=== PATIENT | male | born 1965 | race African-American/Black ===

== ENCOUNTER 2016-11-21 21:05 | Inpatient (IN) | payer MEDICARE, MEDICAID ==
[~2016-11-21] VITALS: Ht 180.3 cm; Wt 78.2 kg
[~2016-11-21 21:05] MED LIST: ALBU8HFA IH; AMLO2.5T PO; DIVA500T69 PO; QUET200T29 PO
[2016-11-21 22:27] LABS: EOSINOPHILS % (AUTO) 3.8 % (1.0-6.0); HEMATOCRIT 40.5 % (41-53); HEMOGLOBIN 13.1 g/dL (13.5-17.5); LYMPHOCYTES # (AUTO) 2.1 K/uL (1.0-4.8); LYMPHOCYTES % (AUTO) 28.2 % (22.0-44.0); MEAN CORPUSCULAR HEMOGLOBIN 30.1 pg (26.0-34.0); MEAN CORPUSCULAR HGB CONC 32.5 G/dL (31.0-37.0); MEAN CORPUSCULAR VOLUME 93 fL (80-100); MONOCYTES # (AUTO) 0.4 K/uL (0.1-1.0); MONOCYTES % (AUTO) 5.7 % (2.0-9.0); NEUTROPHILS # (AUTO) 4.6 K/uL (1.8-7.7); NEUTROPHILS % (AUTO) 61.3 % (40.0-70.0); PLATELET COUNT (AUTO) 236 K/uL (150-450); RED BLOOD CELL COUNT(AUTO) 4.37 MIL/uL (4.50-5.90); RED CELL DISTRIBUTION WIDTH 15.7 % (11.5-14.5); WHITE BLOOD COUNT (AUTO) 7.5 K/uL (4.5-11.0)
[2016-11-21 22:38] LABS: ANION GAP 12 mmol/L (8-16); CARBON DIOXIDE 24 mmol/L (22-29); CHLORIDE 108 mmol/L (98-107); CREATININE 1.23 mg/dL (0.60-1.30); GLOMERULAR FILTR. RATE CALC > 60 mL/min (>60); POTASSIUM 4.2 mmol/L (3.5-5.1); SODIUM SERUM 144 mmol/L (136-145); UREA NITROGEN, BLOOD 17 mg/dL (7-18)
[2016-11-21 22:45] LABS: ALANINE AMINOTRANSFERASE 15 U/L (12-78); ALBUMIN 3.3 g/dL (3.4-5.0); ASPARTATE AMINOTRANSFERASE 8 U/L (15-37); BILIRUBIN,TOTAL 0.1 mg/dL (0.1-1.0); TOTAL PROTEIN, SERUM 6.9 g/dL (6.4-8.2)
[2016-11-21] MEDS ORDERED: LORazepam 2 MG/ML VIAL IM ONE (23:00)
[2016-11-21] MEDS ORDERED: HALOPERIDOL LACTATE 5 MG/ML VIAL IM ONE (23:00)
[2016-11-21] MEDS ORDERED: DiphenhydrAMINE HCL 50 MG/ML VIAL IM ONE (23:00)
[2016-11-21] MEDS ORDERED: LORazepam 2 MG TABLET PO PRN (23:15)
[2016-11-21] MEDS ORDERED: ZOLPIDEM TARTRATE 10 MG TABLET PO PRN (23:15)
[2016-11-21] MEDS ORDERED: HALOPERIDOL 5 MG TABLET PO PRN (23:15)
[2016-11-22 00:45] VITALS: BP 141/85
[2016-11-22] MEDS ORDERED: PNEUMOCOCCAL VACCINE POLYVALENT 0.5 ML VIAL [PPSV23] IM ONE (03:00)
[2016-11-22] MEDS ORDERED: ALBUTEROL SULFATE HFA 90 MCG/PUFF 8 GM INHALER IH PRN (08:30)
[2016-11-22] MEDS ORDERED: CloNIDine HCL 0.1 MG TABLET PO PRN (08:30)
[2016-11-22] MEDS ORDERED: MAG HYDROX/AL HYDROX/SIMETH ES 30 ML SUSPENSION UDCUP PO PRN (08:30)
[2016-11-22] MEDS ORDERED: IBUPROFEN 600 MG TABLET PO PRN (08:30)
[2016-11-22] MEDS ORDERED: BENZOCAINE/MENTHOL LOZENGE MM PRN (08:30)
[2016-11-22] MEDS ORDERED: BACITRACIN 28.4 GM OINTMENT TP PRN (08:30)
[2016-11-22] MEDS ORDERED: LOPERAMIDE HCL 2 MG CAPSULE PO PRN (08:30)
[2016-11-22] MEDS ORDERED: ACETAMINOPHEN 325 MG TABLET PO PRN (08:30)
[2016-11-22] MEDS ORDERED: PETROLATUM,WHITE 71 GM JELLY TP PRN (08:30)
[2016-11-22] MEDS ORDERED: ONDANSETRON HCL 4 MG TABLET PO PRN (08:30)
[2016-11-22] MEDS ORDERED: MAGNESIUM HYDROXIDE SUSPENSION 30 ML UDCUP PO PRN (08:30)
[2016-11-22] MEDS ORDERED: BENZOCAINE/MENTHOL LOZENGE [8 LOZENGES/PACKET] MM PRN (08:32)
[2016-11-22] MEDS: AmLODIPine BESYLATE 2.5 MG TABLET PO SCH (09:42)
[2016-11-22 12:16] VITALS: BP 144/78
[2016-11-22] MEDS: QUEtiapine FUMARATE 200 MG TABLET PO SCH (21:04)
[2016-11-22] MEDS: DIVALPROEX SODIUM 500 MG ER TABLET PO SCH (21:04)
[2016-11-23 08:31] VITALS: BP 141/86
[2016-11-23] MEDS: AmLODIPine BESYLATE 2.5 MG TABLET PO SCH (09:18)
[2016-11-23] MEDS ORDERED: GuaiFENesin/D-METHORPHAN [SUGAR-FREE] 200-20MG/10 ML SYRUP UDCUP PO PRN (10:15)
[2016-11-23] MEDS ORDERED: QUEtiapine FUMARATE 100 MG TABLET PO PRN (10:15)
[2016-11-23] MEDS ORDERED: HydrOXYzine PAMOATE 50 MG CAPSULE PO PRN (10:15)
[2016-11-23] MEDS ORDERED: LORazepam 2 MG TABLET PO PRN (16:15)
[2016-11-23] MEDS: THIAMINE HCL 100 MG TABLET PO SCH (16:18)
[2016-11-23 16:46] VITALS: BP 145/104
[2016-11-23 17:00] VITALS: BP 142/98
[2016-11-23] MEDS: DIVALPROEX SODIUM 500 MG ER TABLET PO SCH (20:39)
[2016-11-23] MEDS: QUEtiapine FUMARATE 200 MG TABLET PO SCH (20:40)
[2016-11-24] MEDS ORDERED: LORazepam 2 MG TABLET PO PRN (07:00)
[2016-11-24] MEDS: FERROUS SULFATE 325 MG EC TABLET PO SCH ×2 (07:02→16:25)
[2016-11-24] MEDS: FOLIC ACID 1 MG TABLET PO SCH (09:00)
[2016-11-24] MEDS: LORazepam 2 MG TABLET PO SCH ×4 (09:00→20:08)
[2016-11-24] MEDS: MULTIVITAMINS WITH MINERALS, THERAPEUTIC TABLET PO SCH (09:00)
[2016-11-24] MEDS: THIAMINE HCL 100 MG TABLET PO SCH ×2 (09:00→16:25)
[2016-11-24] MEDS: AmLODIPine BESYLATE 2.5 MG TABLET PO SCH (09:00)
[2016-11-24] MEDS: DIVALPROEX SODIUM 500 MG ER TABLET PO SCH (20:08)
[2016-11-24] MEDS: QUEtiapine FUMARATE 200 MG TABLET PO SCH (20:08)
[2016-11-25] MEDS: FERROUS SULFATE 325 MG EC TABLET PO SCH ×2 (07:04→17:05)
[2016-11-25] MEDS: LORazepam 2 MG TABLET PO SCH ×4 (09:00→20:40)
[2016-11-25] MEDS: THIAMINE HCL 100 MG TABLET PO SCH ×2 (09:29→17:00)
[2016-11-25] MEDS: MULTIVITAMINS WITH MINERALS, THERAPEUTIC TABLET PO SCH (09:29)
[2016-11-25] MEDS: AmLODIPine BESYLATE 2.5 MG TABLET PO SCH (09:29)
[2016-11-25] MEDS: FOLIC ACID 1 MG TABLET PO SCH (09:29)
[2016-11-25 10:20] VITALS: BP 126/89
[2016-11-25 10:22] VITALS: BP 126/89
[2016-11-25] MEDS ORDERED: QUEtiapine FUMARATE 25 MG TABLET PO ONE (12:15)
[2016-11-25 16:20] VITALS: BP 129/75
[2016-11-25 16:23] VITALS: BP 129/75
[2016-11-25] MEDS: DIVALPROEX SODIUM 500 MG ER TABLET PO SCH (20:40)
[2016-11-25] MEDS: QUEtiapine FUMARATE 200 MG TABLET PO SCH (20:40)
[2016-11-26] MEDS: FERROUS SULFATE 325 MG EC TABLET PO SCH ×2 (06:59→16:44)
[2016-11-26] MEDS ORDERED: LORazepam 1 MG TABLET PO PRN (07:00)
[2016-11-26] MEDS: MULTIVITAMINS WITH MINERALS, THERAPEUTIC TABLET PO SCH (08:39)
[2016-11-26] MEDS: LORazepam 1 MG TABLET PO SCH ×4 (08:39→21:14)
[2016-11-26] MEDS: AmLODIPine BESYLATE 2.5 MG TABLET PO SCH (08:39)
[2016-11-26] MEDS: THIAMINE HCL 100 MG TABLET PO SCH ×2 (08:39→16:03)
[2016-11-26] MEDS: FOLIC ACID 1 MG TABLET PO SCH (08:39)
[2016-11-26 08:54] VITALS: BP 131/92
[2016-11-26] MEDS ORDERED: NALT50 PO (12:51)
[2016-11-26] MEDS ORDERED: QUET200T29 PO (12:51)
[2016-11-26] MEDS ORDERED: DIVA500T52 PO (12:51)
[2016-11-26 16:21] VITALS: BP 136/98
[2016-11-26] MEDS: DIVALPROEX SODIUM 500 MG ER TABLET PO SCH (21:14)
[2016-11-26] MEDS: QUEtiapine FUMARATE 200 MG TABLET PO SCH (21:15)
[2016-11-27] MEDS: FERROUS SULFATE 325 MG EC TABLET PO SCH (06:51)
[2016-11-27] MEDS ORDERED: LORazepam 1 MG TABLET PO PRN (07:00)
[2016-11-27 08:21] VITALS: BP 147/109
[2016-11-27 08:30] VITALS: BP 154/111
[2016-11-27] MEDS: AmLODIPine BESYLATE 2.5 MG TABLET PO SCH (08:35)
[2016-11-27] MEDS: MULTIVITAMINS WITH MINERALS, THERAPEUTIC TABLET PO SCH (08:35)
[2016-11-27] MEDS: THIAMINE HCL 100 MG TABLET PO SCH (08:36)
[2016-11-27] MEDS: FOLIC ACID 1 MG TABLET PO SCH (08:36)
[2016-11-27] MEDS ORDERED: NALTREXONE HCL 50 MG TABLET PO SCH (09:00)
[2016-11-27] MEDS ORDERED: AMLO-511 PO (10:06)
[2016-11-27] MEDS ORDERED: FERR-89 PO (10:06)
[2016-11-27 11:35] VITALS: BP 129/92
== END 2016-11-27 11:50 | disposition home or self-care (01) | DRG 885 ==
LOC: EMS 21:08 → 3EC 23:43
PROVIDERS: ATTEND Psychiatry & Neurology Psychiatry
PROC: GZHZZZZ Group Psychotherapy (ICD-10-PCS; principal; 2016-11-21)
PROC: GZ51ZZZ Individual Psychotherapy, Behavioral (ICD-10-PCS; 2016-11-21)
DX: F25.0 Schizoaffective disorder, bipolar type (principal); R45.851 Suicidal ideations; R45.850 Homicidal ideations; J44.9 Chronic obstructive pulmonary disease, unspecified; G89.29 Other chronic pain; D64.9 Anemia, unspecified; I12.9 Hypertensive chronic kidney disease with stage 1 through stage 4 chronic kidney disease, or unspecified chronic kidney disease; N18.9 Chronic kidney disease, unspecified; E78.5 Hyperlipidemia, unspecified; Z53.29 Procedure and treatment not carried out because of patient's decision for other reasons; M19.90 Unspecified osteoarthritis, unspecified site; F19.10 Other psychoactive substance abuse, uncomplicated; F12.90 Cannabis use, unspecified, uncomplicated; F17.210 Nicotine dependence, cigarettes, uncomplicated; G47.00 Insomnia, unspecified; F10.129 Alcohol abuse with intoxication, unspecified; F60.9 Personality disorder, unspecified; Y90.3 Blood alcohol level of 60-79 mg/100 ml; Z91.19 Patient's noncompliance with other medical treatment and regimen; Z71.6 Tobacco abuse counseling; Z59.0 Homelessness; Z71.51 Drug abuse counseling and surveillance of drug abuser; Z28.21 Immunization not carried out because of patient refusal; Z79.899 Other long term (current) drug therapy
CPT/HCPCS: 96372; 99285; G0480; J1200; J1630; J2060

== ENCOUNTER 2016-12-28 17:50 | Inpatient (IN) | payer MEDICARE, MEDICAID ==
[~2016-12-28] VITALS: Ht 182.9 cm; Wt 78.9 kg
[~2016-12-28 17:50] MED LIST changes: -ALBU8HFA IH; +AMLO-511 PO; -AMLO2.5T PO; +DIVA500T52 PO; -DIVA500T69 PO; +FERR-89 PO; +NALT50 PO
[2016-12-28 20:10] LABS: BASOPHILS # (AUTO) 0.02 K/uL (0.00-0.20); BASOPHILS % (AUTO) 0.3 % (0.0-2.0); EOSINOPHILS # (AUTO) 0.45 K/uL (0.00-0.70); EOSINOPHILS % (AUTO) 6.76 % (1.0-6.0); HEMATOCRIT 40.5 % (41-53); HEMOGLOBIN 13.4 g/dL (13.5-17.5); LYMPHOCYTES # (AUTO) 2.1 K/uL (1.0-4.8); LYMPHOCYTES % (AUTO) 31.6 % (22.0-44.0); MEAN CORPUSCULAR HGB CONC 33.1 G/dL (31.0-37.0); MEAN CORPUSCULAR VOLUME 94 fL (80-100); MONOCYTES # (AUTO) 0.6 K/uL (0.1-1.0); MONOCYTES % (AUTO) 8.2 % (2.0-9.0); NEUTROPHILS # (AUTO) 3.5 K/uL (1.8-7.7); NEUTROPHILS % (AUTO) 53.1 % (40.0-70.0); PLATELET COUNT (AUTO) 218 K/uL (150-450); RED BLOOD CELL COUNT(AUTO) 4.31 MIL/uL (4.50-5.90); RED CELL DISTRIBUTION WIDTH 15.1 % (11.5-14.5); WHITE BLOOD COUNT (AUTO) 6.7 K/uL (4.5-11.0)
[2016-12-28 20:22] LABS: ANION GAP 7 mmol/L (8-16); CALCIUM, TOTAL 8.2 mg/dL (8.8-10.5); CARBON DIOXIDE 28 mmol/L (22-29); CHLORIDE 105 mmol/L (98-107); CREATININE 1.36 mg/dL (0.60-1.30); GLOMERULAR FILTR. RATE CALC > 60 mL/min (>60); POTASSIUM 3.7 mmol/L (3.5-5.1); SODIUM SERUM 140 mmol/L (136-145); UREA NITROGEN, BLOOD 15 mg/dL (7-18)
[2016-12-28 20:28] LABS: ALANINE AMINOTRANSFERASE 16 U/L (12-78); ALBUMIN 3.3 g/dL (3.4-5.0); ASPARTATE AMINOTRANSFERASE 7 U/L (15-37); BILIRUBIN,TOTAL 0.1 mg/dL (0.1-1.0); CHOL/HDL RATIO 3.5 (4.2-7.3); TOTAL PROTEIN, SERUM 6.6 g/dL (6.4-8.2)
[2016-12-28 20:40] LABS: VALPROIC ACID < 3 mcg/mL (50-100)
[2016-12-29] MEDS ORDERED: PNEUMOCOCCAL VACCINE POLYVALENT 0.5 ML VIAL [PPSV23] IM ONE (01:45)
[2016-12-29 05:59] VITALS: BP 112/77
[2016-12-29] MEDS ORDERED: PETROLATUM,WHITE 71 GM JELLY TP PRN (08:30)
[2016-12-29] MEDS ORDERED: CloNIDine HCL 0.1 MG TABLET PO PRN (08:30)
[2016-12-29] MEDS ORDERED: BENZOCAINE/MENTHOL LOZENGE MM PRN (08:30)
[2016-12-29] MEDS ORDERED: MAGNESIUM HYDROXIDE SUSPENSION 30 ML UDCUP PO PRN (08:30)
[2016-12-29] MEDS ORDERED: ONDANSETRON HCL 4 MG TABLET PO PRN (08:30)
[2016-12-29] MEDS ORDERED: ACETAMINOPHEN 325 MG TABLET PO PRN (08:30)
[2016-12-29] MEDS ORDERED: LOPERAMIDE HCL 2 MG CAPSULE PO PRN (08:30)
[2016-12-29] MEDS ORDERED: BACITRACIN 28.4 GM OINTMENT TP PRN (08:30)
[2016-12-29] MEDS ORDERED: ALBUTEROL SULFATE HFA 90 MCG/PUFF 8 GM INHALER IH PRN (08:30)
[2016-12-29] MEDS ORDERED: MAG HYDROX/AL HYDROX/SIMETH ES 30 ML SUSPENSION UDCUP PO PRN (08:30)
[2016-12-29] MEDS: FISH OIL/OMEGA-3 FATTY ACIDS 500 MG CAPSULE PO SCH (09:05)
[2016-12-29 16:23] VITALS: BP 105/86
[2016-12-29] MEDS: OLANZapine 10 MG TABLET PO SCH (20:35)
[2016-12-30] MEDS: FISH OIL/OMEGA-3 FATTY ACIDS 500 MG CAPSULE PO SCH (08:30)
[2016-12-30] MEDS: PARoxetine HCL 20 MG TABLET PO SCH (08:30)
[2016-12-30] MEDS: IBUPROFEN 600 MG TABLET PO PRN (08:49)
[2016-12-30] MEDS: OLANZapine 10 MG TABLET PO SCH (20:39)
[2016-12-31] MEDS: FISH OIL/OMEGA-3 FATTY ACIDS 500 MG CAPSULE PO SCH (08:34)
[2016-12-31] MEDS: PARoxetine HCL 20 MG TABLET PO SCH (08:38)
[2016-12-31] MEDS: OLANZapine 10 MG TABLET PO SCH (20:39)
[2017-01-01 06:30] VITALS: BP 126/84
[2017-01-01] MEDS: FISH OIL/OMEGA-3 FATTY ACIDS 500 MG CAPSULE PO SCH (08:30)
[2017-01-01] MEDS: PARoxetine HCL 20 MG TABLET PO SCH (08:30)
[2017-01-01] MEDS: OLANZapine 10 MG TABLET PO SCH (20:45)
[2017-01-02] MEDS: FISH OIL/OMEGA-3 FATTY ACIDS 500 MG CAPSULE PO SCH (08:02)
[2017-01-02] MEDS: PARoxetine HCL 20 MG TABLET PO SCH (08:02)
[2017-01-02] MEDS: OLANZapine 10 MG TABLET PO SCH (20:17)
[2017-01-02] MEDS: ZOLPIDEM TARTRATE 10 MG TABLET PO PRN (20:31)
[2017-01-03] MEDS: PARoxetine HCL 20 MG TABLET PO SCH (08:47)
[2017-01-03] MEDS: FISH OIL/OMEGA-3 FATTY ACIDS 500 MG CAPSULE PO SCH (08:47)
[2017-01-03] MEDS: OXYMETAZOLINE HCL 0.05% 15 ML NASAL SPRAY NASAL SCH ×2 (08:47→16:23)
[2017-01-03] MEDS: OLANZapine 10 MG TABLET PO SCH (20:38)
[2017-01-04] MEDS: FISH OIL/OMEGA-3 FATTY ACIDS 500 MG CAPSULE PO SCH (08:16)
[2017-01-04] MEDS: OXYMETAZOLINE HCL 0.05% 15 ML NASAL SPRAY NASAL SCH ×2 (08:16→17:12)
[2017-01-04] MEDS: PARoxetine HCL 20 MG TABLET PO SCH (08:16)
[2017-01-04] MEDS: LORazepam 2 MG TABLET PO PRN (11:30)
[2017-01-04] MEDS: OLANZapine 10 MG TABLET PO SCH (21:00)
[2017-01-05] MEDS: PARoxetine HCL 20 MG TABLET PO SCH (08:34)
[2017-01-05] MEDS: FISH OIL/OMEGA-3 FATTY ACIDS 500 MG CAPSULE PO SCH (08:34)
[2017-01-05] MEDS: OXYMETAZOLINE HCL 0.05% 15 ML NASAL SPRAY NASAL SCH ×2 (08:35→17:00)
[2017-01-05] MEDS ORDERED: PNEUMOCOCCAL VACCINE POLYVALENT 0.5 ML VIAL [PPSV23] IM ONE (17:00)
[2017-01-05] MEDS: IBUPROFEN 600 MG TABLET PO PRN (20:26)
[2017-01-05] MEDS: OLANZapine 10 MG TABLET PO SCH (20:39)
[2017-01-06 08:17] VITALS: BP 102/72
[2017-01-06] MEDS: OXYMETAZOLINE HCL 0.05% 15 ML NASAL SPRAY NASAL SCH ×2 (09:00→17:00)
[2017-01-06] MEDS: PARoxetine HCL 20 MG TABLET PO SCH (09:35)
[2017-01-06] MEDS: FISH OIL/OMEGA-3 FATTY ACIDS 500 MG CAPSULE PO SCH (09:35)
[2017-01-06] MEDS: LORazepam 2 MG TABLET PO PRN (09:41)
[2017-01-06] MEDS: OLANZapine 10 MG TABLET PO SCH (21:00)
[2017-01-07] MEDS: OXYMETAZOLINE HCL 0.05% 15 ML NASAL SPRAY NASAL SCH ×2 (09:00→16:52)
[2017-01-07] MEDS: PARoxetine HCL 20 MG TABLET PO SCH (09:33)
[2017-01-07] MEDS: FISH OIL/OMEGA-3 FATTY ACIDS 500 MG CAPSULE PO SCH (09:33)
[2017-01-07] MEDS: IBUPROFEN 600 MG TABLET PO PRN (20:51)
[2017-01-07] MEDS: OLANZapine 10 MG TABLET PO SCH (20:52)
[2017-01-08] MEDS: FISH OIL/OMEGA-3 FATTY ACIDS 500 MG CAPSULE PO SCH ×2 (08:52→09:00)
[2017-01-08] MEDS: PARoxetine HCL 20 MG TABLET PO SCH ×2 (08:52→09:00)
[2017-01-08] MEDS: OXYMETAZOLINE HCL 0.05% 15 ML NASAL SPRAY NASAL SCH ×2 (09:00→17:12)
[2017-01-08] MEDS ORDERED: OLAN10TA3 PO (09:01)
[2017-01-08] MEDS ORDERED: PARO20TA24 PO (09:01)
[2017-01-08] MEDS ORDERED: OMEG-12 PO (09:01)
[2017-01-08] MEDS ORDERED: OXYM15MI5 NS (09:09)
[2017-01-08] MEDS: IBUPROFEN 600 MG TABLET PO PRN (15:24)
[2017-01-08] MEDS: LORazepam 2 MG TABLET PO PRN (15:51)
[2017-01-08] MEDS: HALOPERIDOL 5 MG TABLET PO PRN (15:51)
[2017-01-08] MEDS: RisperiDONE 0.5 MG TABLET PO SCH (17:12)
[2017-01-09] MEDS: FISH OIL/OMEGA-3 FATTY ACIDS 500 MG CAPSULE PO SCH (08:53)
[2017-01-09] MEDS: RisperiDONE 0.5 MG TABLET PO SCH ×2 (08:54→17:40)
[2017-01-09] MEDS: PARoxetine HCL 20 MG TABLET PO SCH (08:54)
[2017-01-09] MEDS: LORazepam 2 MG TABLET PO PRN (08:59)
[2017-01-09] MEDS: OXYMETAZOLINE HCL 0.05% 15 ML NASAL SPRAY NASAL SCH ×2 (09:00→17:40)
[2017-01-09 16:16] VITALS: BP 108/77
[2017-01-09 20:59] VITALS: BP 118/73
[2017-01-09] MEDS: ZOLPIDEM TARTRATE 10 MG TABLET PO PRN (21:04)
[2017-01-09] MEDS: IBUPROFEN 600 MG TABLET PO PRN (21:05)
[2017-01-10 08:02] VITALS: BP 123/74
[2017-01-10] MEDS: FISH OIL/OMEGA-3 FATTY ACIDS 500 MG CAPSULE PO SCH (09:12)
[2017-01-10] MEDS: RisperiDONE 0.5 MG TABLET PO SCH ×2 (09:12→17:29)
[2017-01-10] MEDS: OXYMETAZOLINE HCL 0.05% 15 ML NASAL SPRAY NASAL SCH ×2 (09:12→17:29)
[2017-01-10] MEDS: PARoxetine HCL 20 MG TABLET PO SCH (09:12)
[2017-01-10] MEDS: LORazepam 2 MG TABLET PO PRN (09:17)
[2017-01-10 16:02] VITALS: BP 116/71
[2017-01-11] MEDS: PARoxetine HCL 20 MG TABLET PO SCH (09:29)
[2017-01-11] MEDS: OXYMETAZOLINE HCL 0.05% 15 ML NASAL SPRAY NASAL SCH ×2 (09:29→16:32)
[2017-01-11] MEDS: FISH OIL/OMEGA-3 FATTY ACIDS 500 MG CAPSULE PO SCH (09:29)
[2017-01-11] MEDS: RisperiDONE 0.5 MG TABLET PO SCH ×2 (09:29→16:32)
[2017-01-11] MEDS: HALOPERIDOL 5 MG TABLET PO PRN (14:14)
[2017-01-11] MEDS: LORazepam 2 MG TABLET PO PRN (14:14)
[2017-01-12] MEDS: OXYMETAZOLINE HCL 0.05% 15 ML NASAL SPRAY NASAL SCH (09:29)
[2017-01-12] MEDS: PARoxetine HCL 20 MG TABLET PO SCH (09:29)
[2017-01-12] MEDS: FISH OIL/OMEGA-3 FATTY ACIDS 500 MG CAPSULE PO SCH (09:29)
[2017-01-12] MEDS: RisperiDONE 0.5 MG TABLET PO SCH (09:29)
[2017-01-12] MEDS ORDERED: PARO10OR3 PO (13:31)
[2017-01-12] MEDS ORDERED: RISP0.5T13 PO ×2 (13:31→13:35)
[2017-01-12] MEDS ORDERED: RISP0.252 PO (13:35)
== END 2017-01-12 14:31 | disposition home or self-care (01) | DRG 885 ==
LOC: EMS 17:52 → B2X 20:34
PROVIDERS: ADMIT Psychiatry & Neurology Child & Adolescent Psychiatry; ATTEND Psychiatry & Neurology Child & Adolescent Psychiatry
DX: F25.1 Schizoaffective disorder, depressive type (principal); R44.0 Auditory hallucinations; R45.851 Suicidal ideations; J44.9 Chronic obstructive pulmonary disease, unspecified; E78.5 Hyperlipidemia, unspecified; M19.90 Unspecified osteoarthritis, unspecified site; K21.9 Gastro-esophageal reflux disease without esophagitis; I10 Essential (primary) hypertension; K59.00 Constipation, unspecified; G47.00 Insomnia, unspecified; F17.200 Nicotine dependence, unspecified, uncomplicated; F60.2 Antisocial personality disorder; F32.9 Major depressive disorder, single episode, unspecified; Z59.0 Homelessness; Z72.89 Other problems related to lifestyle; Z28.21 Immunization not carried out because of patient refusal
CPT/HCPCS: 99285; G0480

== ENCOUNTER 2017-01-23 07:52 | Inpatient (IN) | payer MEDICARE, MEDICAID ==
[~2017-01-23] VITALS: Ht 182.9 cm; Wt 80.5 kg
[~2017-01-23 07:52] MED LIST changes: -AMLO-511 PO; -DIVA500T52 PO; -FERR-89 PO; -NALT50 PO; +PARO10OR3 PO; -QUET200T29 PO; +RISP0.252 PO
[2017-01-23] MEDS ORDERED: KETOROLAC TROMETHAMINE 30 MG/ML VIAL IM ONE (08:45)
[2017-01-23] MEDS ORDERED: AMOXICILLIN TRIHYDRATE 250 MG CAPSULE PO ONE (08:45)
[2017-01-23] MEDS ORDERED: HALOPERIDOL LACTATE 5 MG/ML VIAL IM ONE (09:15)
[2017-01-23] MEDS ORDERED: LORazepam 2 MG/ML VIAL IM ONE (09:15)
[2017-01-23] MEDS ORDERED: DiphenhydrAMINE HCL 50 MG/ML VIAL IM ONE (09:15)
[2017-01-23 09:19] LABS: BASOPHILS # (AUTO) 0.01 K/uL (0.00-0.20); BASOPHILS % (AUTO) 0.2 % (0.0-2.0); EOSINOPHILS # (AUTO) 0.34 K/uL (0.00-0.70); EOSINOPHILS % (AUTO) 3.73 % (1.0-6.0); HEMATOCRIT 41.5 % (41-53); HEMOGLOBIN 13.7 g/dL (13.5-17.5); LYMPHOCYTES # (AUTO) 0.9 K/uL (1.0-4.8); LYMPHOCYTES % (AUTO) 9.8 % (22.0-44.0); MEAN CORPUSCULAR HEMOGLOBIN 30.7 pg (26.0-34.0); MEAN CORPUSCULAR VOLUME 93 fL (80-100); MONOCYTES # (AUTO) 0.3 K/uL (0.1-1.0); MONOCYTES % (AUTO) 3.7 % (2.0-9.0); NEUTROPHILS # (AUTO) 7.5 K/uL (1.8-7.7); NEUTROPHILS % (AUTO) 82.7 % (40.0-70.0); PLATELET COUNT (AUTO) 234 K/uL (150-450); RED BLOOD CELL COUNT(AUTO) 4.46 MIL/uL (4.50-5.90); RED CELL DISTRIBUTION WIDTH 13.8 % (11.5-14.5); WHITE BLOOD COUNT (AUTO) 9.1 K/uL (4.5-11.0)
[2017-01-23 09:39] LABS: ANION GAP 8 mmol/L (8-16); CALCIUM, TOTAL 8.6 mg/dL (8.8-10.5); CARBON DIOXIDE 27 mmol/L (22-29); CHLORIDE 100 mmol/L (98-107); CREATININE 1.13 mg/dL (0.60-1.30); GLOMERULAR FILTR. RATE CALC > 60 mL/min (>60); POTASSIUM 3.8 mmol/L (3.5-5.1); SODIUM SERUM 135 mmol/L (136-145); UREA NITROGEN, BLOOD 15 mg/dL (7-18)
[2017-01-23 09:42] LABS: ALANINE AMINOTRANSFERASE 19 U/L (12-78); ALBUMIN 3.2 g/dL (3.4-5.0); ASPARTATE AMINOTRANSFERASE 12 U/L (15-37); BILIRUBIN,TOTAL 0.3 mg/dL (0.1-1.0); TOTAL PROTEIN, SERUM 6.8 g/dL (6.4-8.2)
[2017-01-23] MEDS ORDERED: HALOPERIDOL 5 MG TABLET PO PRN (10:15)
[2017-01-23] MEDS ORDERED: ZOLPIDEM TARTRATE 10 MG TABLET PO PRN (10:15)
[2017-01-23 11:10] VITALS: BP 144/74
[2017-01-23 16:37] VITALS: BP 146/100
[2017-01-24] MEDS ORDERED: CloNIDine HCL 0.1 MG TABLET PO PRN (09:30)
[2017-01-24] MEDS ORDERED: ACETAMINOPHEN 325 MG TABLET PO PRN (09:30)
[2017-01-24] MEDS ORDERED: PETROLATUM,WHITE 71 GM JELLY TP PRN (09:30)
[2017-01-24] MEDS ORDERED: MAG HYDROX/AL HYDROX/SIMETH ES 30 ML SUSPENSION UDCUP PO PRN (09:30)
[2017-01-24] MEDS ORDERED: ONDANSETRON HCL 4 MG TABLET PO PRN (09:30)
[2017-01-24] MEDS ORDERED: ALBUTEROL SULFATE HFA 90 MCG/PUFF 8 GM INHALER IH PRN (09:30)
[2017-01-24] MEDS ORDERED: BENZOCAINE/MENTHOL LOZENGE [8 LOZENGES/PACKET] MM PRN (09:30)
[2017-01-24] MEDS ORDERED: BACITRACIN 28.4 GM OINTMENT TP PRN (09:30)
[2017-01-24] MEDS ORDERED: MAGNESIUM HYDROXIDE SUSPENSION 30 ML UDCUP PO PRN (09:30)
[2017-01-24] MEDS ORDERED: LOPERAMIDE HCL 2 MG CAPSULE PO PRN (09:30)
[2017-01-24] MEDS ORDERED: PARO20TA24 PO (16:55)
[2017-01-24] MEDS ORDERED: RISP.5 PO (16:55)
[2017-01-24 17:26] VITALS: BP 160/100
[2017-01-24] MEDS: IBUPROFEN 600 MG TABLET PO PRN (17:26)
[2017-01-24] MEDS: LORazepam 2 MG TABLET PO PRN (17:26)
[2017-01-24] MEDS: OLANZapine 10 MG TABLET PO SCH (21:01)
[2017-01-25] MEDS: DOCUSATE SODIUM 100 MG CAPSULE PO SCH (09:00)
[2017-01-25] MEDS: FISH OIL/OMEGA-3 FATTY ACIDS 500 MG CAPSULE PO SCH (09:28)
[2017-01-25] MEDS: OMEPRAZOLE 20 MG CAPSULE PO SCH (09:28)
[2017-01-25] MEDS: LISINOPRIL 10 MG TABLET PO SCH (09:29)
[2017-01-25 09:30] VITALS: BP 118/83
[2017-01-25] MEDS: IBUPROFEN 600 MG TABLET PO PRN ×2 (09:30→19:37)
[2017-01-25] MEDS ORDERED: OLANZapine 10 MG TABLET PO ONE (10:00)
[2017-01-25 10:33] VITALS: BP 123/87
[2017-01-25 17:34] VITALS: BP 132/91
[2017-01-25 19:37] VITALS: BP 127/66
[2017-01-25] MEDS: OLANZapine 10 MG TABLET PO SCH (20:08)
[2017-01-26] MEDS: LISINOPRIL 10 MG TABLET PO SCH (08:48)
[2017-01-26] MEDS: FISH OIL/OMEGA-3 FATTY ACIDS 500 MG CAPSULE PO SCH (08:48)
[2017-01-26] MEDS: DOCUSATE SODIUM 100 MG CAPSULE PO SCH (08:48)
[2017-01-26] MEDS: OMEPRAZOLE 20 MG CAPSULE PO SCH (08:48)
[2017-01-26] MEDS: OLANZapine 10 MG TABLET PO SCH ×2 (09:00→20:38)
[2017-01-26 09:50] VITALS: BP 126/87
[2017-01-26] MEDS: IBUPROFEN 600 MG TABLET PO PRN (13:29)
[2017-01-26] MEDS: LORazepam 2 MG TABLET PO PRN (13:32)
[2017-01-26 21:12] VITALS: BP 125/85
[2017-01-27 07:02] VITALS: BP 144/100
[2017-01-27] MEDS: FISH OIL/OMEGA-3 FATTY ACIDS 500 MG CAPSULE PO SCH (08:31)
[2017-01-27] MEDS: OMEPRAZOLE 20 MG CAPSULE PO SCH (08:32)
[2017-01-27] MEDS: DOCUSATE SODIUM 100 MG CAPSULE PO SCH (08:32)
[2017-01-27] MEDS: LISINOPRIL 10 MG TABLET PO SCH (08:32)
[2017-01-27] MEDS: OLANZapine 10 MG TABLET PO SCH ×2 (09:00→20:21)
[2017-01-27] MEDS: LORazepam 2 MG TABLET PO PRN ×2 (10:13→19:24)
[2017-01-27] MEDS: IBUPROFEN 600 MG TABLET PO PRN ×2 (10:13→19:24)
[2017-01-27 19:26] VITALS: BP 128/78
[2017-01-28] MEDS: DOCUSATE SODIUM 100 MG CAPSULE PO SCH (08:32)
[2017-01-28] MEDS: FISH OIL/OMEGA-3 FATTY ACIDS 500 MG CAPSULE PO SCH (08:32)
[2017-01-28] MEDS: LISINOPRIL 10 MG TABLET PO SCH (08:32)
[2017-01-28] MEDS: OLANZapine 10 MG TABLET PO SCH ×3 (08:32→21:24)
[2017-01-28] MEDS: OMEPRAZOLE 20 MG CAPSULE PO SCH (08:32)
[2017-01-28] MEDS: LORazepam 2 MG TABLET PO PRN (10:06)
[2017-01-28] MEDS: IBUPROFEN 600 MG TABLET PO PRN (10:06)
[2017-01-28] MEDS ORDERED: DiphenhydrAMINE HCL 50 MG/ML VIAL IM ONE (18:15)
[2017-01-28] MEDS ORDERED: LORazepam 2 MG/ML VIAL IM ONE (18:15)
[2017-01-28] MEDS ORDERED: HALOPERIDOL LACTATE 5 MG/ML VIAL IM ONE (18:15)
[2017-01-29] MEDS: LISINOPRIL 10 MG TABLET PO SCH (08:20)
[2017-01-29] MEDS: FISH OIL/OMEGA-3 FATTY ACIDS 500 MG CAPSULE PO SCH (08:20)
[2017-01-29] MEDS: DOCUSATE SODIUM 100 MG CAPSULE PO SCH (08:20)
[2017-01-29] MEDS: OMEPRAZOLE 20 MG CAPSULE PO SCH (08:20)
[2017-01-29] MEDS: LORazepam 2 MG TABLET PO PRN (08:21)
[2017-01-29] MEDS: IBUPROFEN 600 MG TABLET PO PRN (08:21)
[2017-01-29] MEDS: OLANZapine 10 MG TABLET PO SCH ×2 (09:00→21:00)
[2017-01-30] MEDS: OLANZapine 10 MG TABLET PO SCH ×2 (09:00→20:16)
[2017-01-30] MEDS: FISH OIL/OMEGA-3 FATTY ACIDS 500 MG CAPSULE PO SCH (09:52)
[2017-01-30] MEDS: LISINOPRIL 10 MG TABLET PO SCH (09:52)
[2017-01-30] MEDS: OMEPRAZOLE 20 MG CAPSULE PO SCH (09:52)
[2017-01-30] MEDS: DOCUSATE SODIUM 100 MG CAPSULE PO SCH (09:52)
[2017-01-30 17:58] VITALS: BP 132/98
[2017-01-31] MEDS: FISH OIL/OMEGA-3 FATTY ACIDS 500 MG CAPSULE PO SCH (09:00)
[2017-01-31] MEDS: OLANZapine 10 MG TABLET PO SCH ×2 (09:00→20:10)
[2017-01-31] MEDS: DOCUSATE SODIUM 100 MG CAPSULE PO SCH (09:00)
[2017-01-31] MEDS: OMEPRAZOLE 20 MG CAPSULE PO SCH (09:00)
[2017-01-31] MEDS: LISINOPRIL 10 MG TABLET PO SCH (09:00)
[2017-01-31] MEDS: IBUPROFEN 600 MG TABLET PO PRN (20:11)
[2017-02-01] MEDS: DOCUSATE SODIUM 100 MG CAPSULE PO SCH (09:00)
[2017-02-01] MEDS: OLANZapine 10 MG TABLET PO SCH ×2 (09:00→20:17)
[2017-02-01] MEDS: OMEPRAZOLE 20 MG CAPSULE PO SCH (09:00)
[2017-02-01] MEDS: FISH OIL/OMEGA-3 FATTY ACIDS 500 MG CAPSULE PO SCH (09:00)
[2017-02-01] MEDS: LISINOPRIL 10 MG TABLET PO SCH (09:00)
[2017-02-01 17:56] VITALS: BP 151/89
[2017-02-02] MEDS: FISH OIL/OMEGA-3 FATTY ACIDS 500 MG CAPSULE PO SCH (09:00)
[2017-02-02] MEDS: LISINOPRIL 10 MG TABLET PO SCH (09:00)
[2017-02-02] MEDS: DOCUSATE SODIUM 100 MG CAPSULE PO SCH (09:00)
[2017-02-02] MEDS: OLANZapine 10 MG TABLET PO SCH (09:00)
[2017-02-02] MEDS: OMEPRAZOLE 20 MG CAPSULE PO SCH (09:00)
[2017-02-02] MEDS: IBUPROFEN 600 MG TABLET PO PRN (09:53)
[2017-02-02] MEDS ORDERED: OLAN10TA3 PO (10:47)
[2017-02-02] MEDS ORDERED: DSS100 PO (10:48)
[2017-02-02] MEDS ORDERED: LISI-661 PO (10:49)
[2017-02-02] MEDS ORDERED: OMEG100019 PO (10:49)
[2017-02-02] MEDS ORDERED: OMEP20 PO (10:49)
== END 2017-02-02 12:30 | DRG 885 ==
LOC: EMS 07:57 → 3EX 10:20
PROVIDERS: ADMIT Psychiatry & Neurology Psychiatry; ATTEND Psychiatry & Neurology Psychiatry
DX: F25.0 Schizoaffective disorder, bipolar type (principal); I10 Essential (primary) hypertension; F17.210 Nicotine dependence, cigarettes, uncomplicated; F15.10 Other stimulant abuse, uncomplicated; J44.9 Chronic obstructive pulmonary disease, unspecified; M19.90 Unspecified osteoarthritis, unspecified site; F19.10 Other psychoactive substance abuse, uncomplicated; F12.90 Cannabis use, unspecified, uncomplicated; K59.00 Constipation, unspecified; G47.00 Insomnia, unspecified; R45.87 Impulsiveness; K21.9 Gastro-esophageal reflux disease without esophagitis; F22 Delusional disorders; Z53.29 Procedure and treatment not carried out because of patient's decision for other reasons; Z56.0 Unemployment, unspecified; Z71.6 Tobacco abuse counseling; Z71.51 Drug abuse counseling and surveillance of drug abuser; Z59.0 Homelessness; Z72.89 Other problems related to lifestyle
CPT/HCPCS: 87081; 96372; 99285; G0480; J1200; J1630; J1885; J2060

== ENCOUNTER 2017-06-29 01:47 | Inpatient (IN) | payer MEDICARE, MEDICAID ==
[~2017-06-29] VITALS: Ht 182.9 cm; Wt 80.3 kg
[~2017-06-29 01:47] MED LIST changes: +DSS100 PO; +LISI-661 PO; +OLAN10TA3 PO; +OMEG-135 PO; +OMEP20 PO; -PARO10OR3 PO; -RISP0.252 PO
[2017-06-29] MEDS ORDERED: OLANZapine 5 MG RAPDIS TABLET PO PRN (03:15)
[2017-06-29] MEDS ORDERED: LORazepam 2 MG TABLET PO PRN (03:15)
[2017-06-29 03:26] LABS: ANION GAP 7 mmol/L (8-16); CALCIUM, TOTAL 8.3 mg/dL (8.8-10.5); CARBON DIOXIDE 26 mmol/L (22-29); CHLORIDE 107 mmol/L (98-107); CREATININE 1.31 mg/dL (0.60-1.30); GLOMERULAR FILTR. RATE CALC > 60 mL/min (>60); POTASSIUM 4.2 mmol/L (3.5-5.1); SODIUM SERUM 140 mmol/L (136-145); UREA NITROGEN, BLOOD 22 mg/dL (7-18)
[2017-06-29 03:30] LABS: BASOPHILS % (AUTO) 0.4 % (0.0-2.0); EOSINOPHILS % (AUTO) 6.3 % (1.0-6.0); HEMATOCRIT 39.6 % (41-53); HEMOGLOBIN 13.3 g/dL (13.5-17.5); LYMPHOCYTES # (AUTO) 1.7 K/uL (1.0-4.8); LYMPHOCYTES % (AUTO) 24.5 % (22.0-44.0); MEAN CORPUSCULAR HEMOGLOBIN 31.2 pg (26.0-34.0); MEAN CORPUSCULAR HGB CONC 33.7 G/dL (31.0-37.0); MEAN CORPUSCULAR VOLUME 93 fL (80-100); MONOCYTES # (AUTO) 0.5 K/uL (0.1-1.0); MONOCYTES % (AUTO) 6.9 % (2.0-9.0); NEUTROPHILS # (AUTO) 4.2 K/uL (1.8-7.7); NEUTROPHILS % (AUTO) 61.9 % (40.0-70.0); PLATELET COUNT (AUTO) 228 K/uL (150-450); RED BLOOD CELL COUNT(AUTO) 4.28 MIL/uL (4.50-5.90); RED CELL DISTRIBUTION WIDTH 14.8 % (11.5-14.5); WHITE BLOOD COUNT (AUTO) 6.7 K/uL (4.5-11.0)
[2017-06-29 03:41] LABS: ALANINE AMINOTRANSFERASE 19 U/L (12-78); ALBUMIN 3.1 g/dL (3.4-5.0); ASPARTATE AMINOTRANSFERASE 15 U/L (15-37); BILIRUBIN,TOTAL 0.2 mg/dL (0.1-1.0); CHOL/HDL RATIO 2.6 (4.2-7.3); THYROID STIMULATING HORMONE 0.46 uIU/mL (0.36-3.74); TOTAL PROTEIN, SERUM 6.3 g/dL (6.4-8.2)
[2017-06-29 05:07] LABS: APPEARANCE,URINE CLEAR (CLEAR); GLUCOSE, URINE (UA) NEGATIVE (NEGATIVE); KETONES,URINE TRACE mg/dL (NEGATIVE); LEUKOCYTE ESTERASE ,URINE NEGATIVE (NEGATIVE); OCCULT BLOOD,URINE NEGATIVE (NEGATIVE); PROTEIN,URINE NEGATIVE (NEGATIVE)
[2017-06-29 05:08] LABS: ADD UA MICROSCOPIC NO
[2017-06-29] MEDS ORDERED: INFLUENZA VIRUS VACCINE QVS 2017-18 (3YR+)/PF 60 MCG/0.5 ML SYRINGE IM ONE (05:30)
[2017-06-29 05:35] VITALS: BP 121/92
[2017-06-29] MEDS ORDERED: PNEUMOCOCCAL VACCINE POLYVALENT 0.5 ML VIAL [PPSV23] IM ONE (05:45)
[2017-06-29] MEDS ORDERED: HydrOXYzine PAMOATE 50 MG CAPSULE PO PRN (12:00)
[2017-06-29] MEDS ORDERED: MAG HYDROX/AL HYDROX/SIMETH ES 30 ML SUSPENSION UDCUP PO PRN (12:00)
[2017-06-29] MEDS ORDERED: LOPERAMIDE HCL 2 MG CAPSULE PO PRN (12:00)
[2017-06-29] MEDS ORDERED: PROMETHAZINE HCL 25 MG TABLET PO PRN (12:00)
[2017-06-29] MEDS ORDERED: GuaiFENesin/D-METHORPHAN [SUGAR-FREE] 200-20MG/10 ML SYRUP UDCUP PO PRN (12:00)
[2017-06-29] MEDS ORDERED: MAGNESIUM HYDROXIDE SUSPENSION 30 ML UDCUP PO PRN (12:00)
[2017-06-29] MEDS: THIAMINE HCL 100 MG TABLET PO SCH (16:50)
[2017-06-29 18:06] VITALS: BP 137/84
[2017-06-29] MEDS: DIVALPROEX SODIUM 500 MG ER TABLET PO SCH (20:51)
[2017-06-29] MEDS: ASENAPINE 10 MG SUBLINGUAL TABLET SL SCH (20:51)
[2017-06-30 09:00] VITALS: BP 132/69
[2017-06-30] MEDS: NALTREXONE HCL 50 MG TABLET PO SCH (09:00)
[2017-06-30] MEDS: DOCUSATE SODIUM 100 MG CAPSULE PO SCH (09:00)
[2017-06-30] MEDS: THIAMINE HCL 100 MG TABLET PO SCH ×2 (09:00→17:13)
[2017-06-30] MEDS: OMEPRAZOLE 20 MG CAPSULE PO SCH (09:00)
[2017-06-30] MEDS: MULTIVITAMINS WITH MINERALS, THERAPEUTIC TABLET PO SCH (09:00)
[2017-06-30] MEDS: FOLIC ACID 1 MG TABLET PO SCH (09:00)
[2017-06-30] MEDS: LISINOPRIL 5 MG TABLET PO SCH (09:02)
[2017-06-30] MEDS: ACETAMINOPHEN 325 MG TABLET PO PRN (17:16)
[2017-06-30] MEDS: DIVALPROEX SODIUM 500 MG ER TABLET PO SCH (20:55)
[2017-06-30] MEDS: ASENAPINE 10 MG SUBLINGUAL TABLET SL SCH (20:55)
[2017-06-30] MEDS: ZOLPIDEM TARTRATE 10 MG TABLET PO PRN (21:55)
[2017-07-01 09:05] VITALS: BP 110/68
[2017-07-01] MEDS: THIAMINE HCL 100 MG TABLET PO SCH ×2 (09:07→16:37)
[2017-07-01] MEDS: DOCUSATE SODIUM 100 MG CAPSULE PO SCH (09:07)
[2017-07-01] MEDS: NALTREXONE HCL 50 MG TABLET PO SCH (09:07)
[2017-07-01] MEDS: MULTIVITAMINS WITH MINERALS, THERAPEUTIC TABLET PO SCH (09:07)
[2017-07-01] MEDS: OMEPRAZOLE 20 MG CAPSULE PO SCH (09:07)
[2017-07-01] MEDS: FOLIC ACID 1 MG TABLET PO SCH (09:07)
[2017-07-01] MEDS: LISINOPRIL 5 MG TABLET PO SCH (09:07)
[2017-07-01] MEDS: ACETAMINOPHEN 325 MG TABLET PO PRN (09:08)
[2017-07-01] MEDS: DIVALPROEX SODIUM 500 MG ER TABLET PO SCH (21:10)
[2017-07-01] MEDS: ASENAPINE 10 MG SUBLINGUAL TABLET SL SCH (21:10)
[2017-07-02 07:07] VITALS: BP 145/78
[2017-07-02 08:30] VITALS: BP 129/90
[2017-07-02] MEDS: FOLIC ACID 1 MG TABLET PO SCH (08:42)
[2017-07-02] MEDS: DOCUSATE SODIUM 100 MG CAPSULE PO SCH (08:42)
[2017-07-02] MEDS: OMEPRAZOLE 20 MG CAPSULE PO SCH (08:42)
[2017-07-02] MEDS: THIAMINE HCL 100 MG TABLET PO SCH ×2 (08:42→16:58)
[2017-07-02] MEDS: MULTIVITAMINS WITH MINERALS, THERAPEUTIC TABLET PO SCH (08:43)
[2017-07-02] MEDS: NALTREXONE HCL 50 MG TABLET PO SCH (08:43)
[2017-07-02] MEDS: LISINOPRIL 5 MG TABLET PO SCH (08:43)
[2017-07-02] MEDS: ASENAPINE 10 MG SUBLINGUAL TABLET SL SCH (20:38)
[2017-07-02] MEDS: DIVALPROEX SODIUM 500 MG ER TABLET PO SCH (20:38)
[2017-07-03 08:23] VITALS: BP 124/90
[2017-07-03] MEDS: NALTREXONE HCL 50 MG TABLET PO SCH (08:51)
[2017-07-03] MEDS: OMEPRAZOLE 20 MG CAPSULE PO SCH (08:51)
[2017-07-03] MEDS: LISINOPRIL 5 MG TABLET PO SCH (08:51)
[2017-07-03] MEDS: THIAMINE HCL 100 MG TABLET PO SCH ×2 (08:52→16:59)
[2017-07-03] MEDS: MULTIVITAMINS WITH MINERALS, THERAPEUTIC TABLET PO SCH (08:52)
[2017-07-03] MEDS: FOLIC ACID 1 MG TABLET PO SCH (08:52)
[2017-07-03] MEDS: DOCUSATE SODIUM 100 MG CAPSULE PO SCH (08:52)
[2017-07-03 10:00] VITALS: BP 126/84
[2017-07-03 16:07] VITALS: BP 121/74
[2017-07-03 18:38] VITALS: BP 122/79
[2017-07-03] MEDS: ACETAMINOPHEN 325 MG TABLET PO PRN (18:38)
[2017-07-03] MEDS: DIVALPROEX SODIUM 500 MG ER TABLET PO SCH (21:00)
[2017-07-03] MEDS: ASENAPINE 10 MG SUBLINGUAL TABLET SL SCH (21:00)
[2017-07-03] MEDS: ZOLPIDEM TARTRATE 10 MG TABLET PO PRN (21:16)
[2017-07-04 08:32] VITALS: BP_SYST 135; BP_SYST 142; BP_DIAS 77; BP_DIAS 90
[2017-07-04] MEDS: LISINOPRIL 5 MG TABLET PO SCH (09:00)
[2017-07-04] MEDS: FOLIC ACID 1 MG TABLET PO SCH (09:00)
[2017-07-04] MEDS: DOCUSATE SODIUM 100 MG CAPSULE PO SCH (09:00)
[2017-07-04] MEDS: OMEPRAZOLE 20 MG CAPSULE PO SCH (09:00)
[2017-07-04] MEDS: NALTREXONE HCL 50 MG TABLET PO SCH (09:00)
[2017-07-04] MEDS: MULTIVITAMINS WITH MINERALS, THERAPEUTIC TABLET PO SCH (09:00)
[2017-07-04] MEDS: THIAMINE HCL 100 MG TABLET PO SCH ×2 (09:00→16:49)
[2017-07-04] MEDS: DIVALPROEX SODIUM 500 MG ER TABLET PO SCH (21:00)
[2017-07-04] MEDS: ASENAPINE 10 MG SUBLINGUAL TABLET SL SCH (21:00)
[2017-07-05 08:41] VITALS: BP 122/84
[2017-07-05] MEDS: FOLIC ACID 1 MG TABLET PO SCH (09:00)
[2017-07-05] MEDS: LISINOPRIL 5 MG TABLET PO SCH (09:00)
[2017-07-05] MEDS: THIAMINE HCL 100 MG TABLET PO SCH ×2 (09:00→16:54)
[2017-07-05] MEDS: OMEPRAZOLE 20 MG CAPSULE PO SCH (09:00)
[2017-07-05] MEDS: NALTREXONE HCL 50 MG TABLET PO SCH (09:00)
[2017-07-05] MEDS: MULTIVITAMINS WITH MINERALS, THERAPEUTIC TABLET PO SCH (09:00)
[2017-07-05] MEDS: DOCUSATE SODIUM 100 MG CAPSULE PO SCH (09:00)
[2017-07-05] MEDS ORDERED: IBUPROFEN 600 MG TABLET PO PRN (12:00)
[2017-07-05] MEDS: ASENAPINE 10 MG SUBLINGUAL TABLET SL SCH (20:44)
[2017-07-05] MEDS: DIVALPROEX SODIUM 500 MG ER TABLET PO SCH (20:44)
[2017-07-06] MEDS: OMEPRAZOLE 20 MG CAPSULE PO SCH (09:00)
[2017-07-06 09:18] VITALS: BP 122/60
[2017-07-06] MEDS: NALTREXONE HCL 50 MG TABLET PO SCH (09:18)
[2017-07-06] MEDS: MULTIVITAMINS WITH MINERALS, THERAPEUTIC TABLET PO SCH (09:18)
[2017-07-06] MEDS: THIAMINE HCL 100 MG TABLET PO SCH ×2 (09:18→17:00)
[2017-07-06] MEDS: LISINOPRIL 5 MG TABLET PO SCH (09:18)
[2017-07-06] MEDS: FOLIC ACID 1 MG TABLET PO SCH (09:18)
[2017-07-06] MEDS: DOCUSATE SODIUM 100 MG CAPSULE PO SCH (09:18)
[2017-07-06] MEDS: GABAPENTIN 300 MG CAPSULE PO SCH ×2 (17:14→20:41)
[2017-07-06] MEDS: OLANZapine 5 MG RAPDIS TABLET PO SCH (20:42)
[2017-07-07] MEDS: NALTREXONE HCL 50 MG TABLET PO SCH (09:00)
[2017-07-07] MEDS: THIAMINE HCL 100 MG TABLET PO SCH ×2 (09:00→17:00)
[2017-07-07] MEDS: DOCUSATE SODIUM 100 MG CAPSULE PO SCH (09:00)
[2017-07-07] MEDS: LISINOPRIL 5 MG TABLET PO SCH (09:00)
[2017-07-07] MEDS: FOLIC ACID 1 MG TABLET PO SCH (09:00)
[2017-07-07] MEDS: OMEPRAZOLE 20 MG CAPSULE PO SCH (09:00)
[2017-07-07] MEDS: MULTIVITAMINS WITH MINERALS, THERAPEUTIC TABLET PO SCH (09:00)
[2017-07-07] MEDS: GABAPENTIN 300 MG CAPSULE PO SCH ×4 (09:00→20:38)
[2017-07-07] MEDS: DULoxetine HCL 30 MG CAPSULE PO SCH (09:00)
[2017-07-07] MEDS ORDERED: DICLOFENAC SODIUM 1% 100 GM GEL [2GM] TP PRN (13:30)
[2017-07-07 16:08] VITALS: BP 119/66
[2017-07-07] MEDS: TiZANidine HCL 4 MG TABLET PO SCH (17:00)
[2017-07-07] MEDS: OLANZapine 5 MG RAPDIS TABLET PO SCH (20:38)
[2017-07-08] MEDS: GABAPENTIN 300 MG CAPSULE PO SCH ×4 (09:00→20:41)
[2017-07-08] MEDS: FOLIC ACID 1 MG TABLET PO SCH (09:00)
[2017-07-08] MEDS: MULTIVITAMINS WITH MINERALS, THERAPEUTIC TABLET PO SCH (09:00)
[2017-07-08] MEDS: THIAMINE HCL 100 MG TABLET PO SCH ×2 (09:00→16:46)
[2017-07-08] MEDS: NALTREXONE HCL 50 MG TABLET PO SCH (09:00)
[2017-07-08] MEDS: TiZANidine HCL 4 MG TABLET PO SCH ×2 (09:00→16:46)
[2017-07-08] MEDS: DULoxetine HCL 30 MG CAPSULE PO SCH (09:00)
[2017-07-08] MEDS: OMEPRAZOLE 20 MG CAPSULE PO SCH (09:00)
[2017-07-08] MEDS: LISINOPRIL 5 MG TABLET PO SCH (09:00)
[2017-07-08] MEDS: DOCUSATE SODIUM 100 MG CAPSULE PO SCH (09:00)
[2017-07-08] MEDS ORDERED: NALT50TA PO (11:32)
[2017-07-08] MEDS ORDERED: GABA-531 PO (11:32)
[2017-07-08] MEDS ORDERED: OLAN5TAB30 PO (11:32)
[2017-07-08] MEDS ORDERED: DULO30CA2 PO (11:32)
[2017-07-08 16:23] VITALS: BP 125/81
[2017-07-08] MEDS: OLANZapine 5 MG RAPDIS TABLET PO SCH (20:41)
[2017-07-09 08:37] LABS: ALANINE AMINOTRANSFERASE 28 U/L (12-78); ALBUMIN 3.1 g/dL (3.4-5.0); ANION GAP 6 mmol/L (8-16); ASPARTATE AMINOTRANSFERASE 13 U/L (15-37); BILIRUBIN,TOTAL 0.3 mg/dL (0.1-1.0); CALCIUM, TOTAL 9.2 mg/dL (8.8-10.5); CARBON DIOXIDE 30 mmol/L (22-29); CHLORIDE 106 mmol/L (98-107); CREATINE KINASE, TOTAL 44 U/L (39-308); CREATININE 0.79 mg/dL (0.60-1.30); GLOMERULAR FILTR. RATE CALC > 60 mL/min (>60); SODIUM SERUM 142 mmol/L (136-145); TOTAL PROTEIN, SERUM 5.9 g/dL (6.4-8.2); UREA NITROGEN, BLOOD 21 mg/dL (7-18)
[2017-07-09] MEDS: DOCUSATE SODIUM 100 MG CAPSULE PO SCH (09:00)
[2017-07-09] MEDS: OMEPRAZOLE 20 MG CAPSULE PO SCH (09:00)
[2017-07-09] MEDS: NALTREXONE HCL 50 MG TABLET PO SCH (09:00)
[2017-07-09] MEDS: DULoxetine HCL 30 MG CAPSULE PO SCH (09:00)
[2017-07-09] MEDS: TiZANidine HCL 4 MG TABLET PO SCH (09:00)
[2017-07-09] MEDS: FOLIC ACID 1 MG TABLET PO SCH (09:00)
[2017-07-09] MEDS: LISINOPRIL 5 MG TABLET PO SCH (09:00)
[2017-07-09] MEDS: MULTIVITAMINS WITH MINERALS, THERAPEUTIC TABLET PO SCH (09:00)
[2017-07-09] MEDS: GABAPENTIN 300 MG CAPSULE PO SCH ×2 (09:00→13:00)
[2017-07-09] MEDS: THIAMINE HCL 100 MG TABLET PO SCH (09:00)
[2017-07-09] MEDS ORDERED: GABA-531 PO (09:36)
[2017-07-09] MEDS ORDERED: NALT50TA6 PO (09:36)
[2017-07-09] MEDS ORDERED: OLAN7.5T2 PO (09:36)
[2017-07-09] MEDS ORDERED: DULO30CA2 PO (09:36)
== END 2017-07-09 13:33 | disposition home or self-care (01) | DRG 885 ==
LOC: EMS 01:49 → B2X 03:46
PROVIDERS: ADMIT Psychiatry & Neurology Psychiatry; ATTEND Psychiatry & Neurology Psychiatry
DX: F20.0 Paranoid schizophrenia (principal); N17.9 Acute kidney failure, unspecified; N18.9 Chronic kidney disease, unspecified; E46 Unspecified protein-calorie malnutrition; R45.851 Suicidal ideations; D64.9 Anemia, unspecified; Z28.21 Immunization not carried out because of patient refusal; Z59.0 Homelessness; E78.5 Hyperlipidemia, unspecified; F10.10 Alcohol abuse, uncomplicated; F15.10 Other stimulant abuse, uncomplicated; F17.200 Nicotine dependence, unspecified, uncomplicated; G47.00 Insomnia, unspecified; G89.29 Other chronic pain; I12.9 Hypertensive chronic kidney disease with stage 1 through stage 4 chronic kidney disease, or unspecified chronic kidney disease; J44.9 Chronic obstructive pulmonary disease, unspecified; K21.9 Gastro-esophageal reflux disease without esophagitis; K59.00 Constipation, unspecified; M43.16 Spondylolisthesis, lumbar region; Z91.14 Patient's other noncompliance with medication regimen; Z91.19 Patient's noncompliance with other medical treatment and regimen; Z65.3 Problems related to other legal circumstances; M54.9 Dorsalgia, unspecified; M19.90 Unspecified osteoarthritis, unspecified site; Z71.41 Alcohol abuse counseling and surveillance of alcoholic; Z71.51 Drug abuse counseling and surveillance of drug abuser; Z71.6 Tobacco abuse counseling; Z56.0 Unemployment, unspecified; Z68.24 Body mass index [BMI] 24.0-24.9, adult
CPT/HCPCS: 72100; 83735; 84443; 99285; G0480

== ENCOUNTER 2018-02-20 15:42 | Inpatient (IN) | payer MEDICARE, MEDICAID ==
[~2018-02-20] VITALS: Ht 177.8 cm; Wt 75.9 kg
[~2018-02-20 15:42] MED LIST changes: +DULO30CA2 PO; +GABA-531 PO; +NALT50TA PO; +NALT50TA6 PO; -OLAN10TA3 PO; +OLAN5TAB30 PO; +OLAN7.5T2 PO
[2018-02-20 18:30] LABS: BASOPHILS % (AUTO) 0.6 % (0.0-2.0); EOSINOPHILS % (AUTO) 6.6 % (1.0-6.0); HEMATOCRIT 37.8 % (41-53); HEMOGLOBIN 12.9 g/dL (13.5-17.5); LYMPHOCYTES # (AUTO) 1.7 K/uL (1.0-4.8); LYMPHOCYTES % (AUTO) 22.7 % (22.0-44.0); MEAN CORPUSCULAR HEMOGLOBIN 30.7 pg (26.0-34.0); MEAN CORPUSCULAR HGB CONC 34.1 G/dL (31.0-37.0); MEAN CORPUSCULAR VOLUME 90 fL (80-100); MONOCYTES # (AUTO) 0.7 K/uL (0.1-1.0); MONOCYTES % (AUTO) 9.6 % (2.0-9.0); NEUTROPHILS # (AUTO) 4.4 K/uL (1.8-7.7); NEUTROPHILS % (AUTO) 60.5 % (40.0-70.0); PLATELET COUNT (AUTO) 276 K/uL (150-450); RED BLOOD CELL COUNT(AUTO) 4.19 MIL/uL (4.50-5.90); RED CELL DISTRIBUTION WIDTH 13.5 % (11.5-14.5)
[2018-02-20 18:39] LABS: ANION GAP 5 mmol/L (8-16); CALCIUM, TOTAL 8.2 mg/dL (8.8-10.5); CARBON DIOXIDE 27 mmol/L (22-29); CHLORIDE 105 mmol/L (98-107); CREATININE 1.08 mg/dL (0.60-1.30); GLOMERULAR FILTR. RATE CALC > 60 mL/min (>60); GLUCOSE,RANDOM 88 mg/dL (70-110); POTASSIUM 3.6 mmol/L (3.5-5.1); SODIUM SERUM 137 mmol/L (136-145); UREA NITROGEN, BLOOD 16 mg/dL (7-18)
[2018-02-20 18:46] LABS: ALANINE AMINOTRANSFERASE 23 U/L (12-78); ALKALINE PHOSPHATASE 60 U/L (46-116); ASPARTATE AMINOTRANSFERASE 14 U/L (15-37); BILIRUBIN,TOTAL 0.1 mg/dL (0.1-1.0); TOTAL PROTEIN, SERUM 6.7 g/dL (6.4-8.2)
[2018-02-20 18:52] LABS: AMPHET/METH SCREEN,URINE POSITIVE (NEGATIVE); BARBITURATE SCREEN, URINE NEGATIVE (NEGATIVE); BENZODIAZEPINES SCREEN,URINE NEGATIVE (NEGATIVE); CANNABINOID SCREEN,URINE NEGATIVE (NEGATIVE); COCAINE SCREEN,URINE NEGATIVE (NEGATIVE); METHADONE SCREEN, URINE NEGATIVE (NEGATIVE); OPIATE SCREEN,URINE NEGATIVE (NEGATIVE); PHENCYCLIDINE SCREEN,URINE NEGATIVE (NEGATIVE)
[2018-02-20] MEDS ORDERED: LISI-660 PO (19:38)
[2018-02-21 01:35] VITALS: BP 130/66
[2018-02-21] MEDS ORDERED: HALOPERIDOL 5 MG TABLET PO PRN (03:30)
[2018-02-21] MEDS ORDERED: MAG HYDROX/AL HYDROX/SIMETH ES 30 ML SUSPENSION UDCUP PO PRN (03:30)
[2018-02-21] MEDS ORDERED: LOPERAMIDE HCL 2 MG CAPSULE PO PRN (03:30)
[2018-02-21] MEDS ORDERED: MAGNESIUM HYDROXIDE SUSPENSION 30 ML UDCUP PO PRN (03:30)
[2018-02-21] MEDS ORDERED: DOCUSATE SODIUM 100 MG CAPSULE PO PRN (06:00)
[2018-02-21] MEDS ORDERED: ALBUTEROL SULFATE HFA 90 MCG/PUFF 8 GM INHALER IH PRN (06:00)
[2018-02-21] MEDS ORDERED: ACETAMINOPHEN 325 MG TABLET PO PRN (06:00)
[2018-02-21] MEDS ORDERED: PETROLATUM,WHITE 71 GM JELLY TP PRN (06:00)
[2018-02-21] MEDS ORDERED: ONDANSETRON HCL 4 MG TABLET PO PRN (06:00)
[2018-02-21] MEDS ORDERED: CloNIDine HCL 0.1 MG TABLET PO PRN (06:00)
[2018-02-21] MEDS ORDERED: PNEUMOCOCCAL VACCINE POLYVALENT 0.5 ML VIAL [PPSV23] IM ONE (06:00)
[2018-02-21] MEDS ORDERED: NICOTINE 14 MG/24 HOUR PATCH TD SCH (09:00)
[2018-02-21 09:05] VITALS: BP 119/80
[2018-02-21] MEDS: LISINOPRIL 5 MG TABLET PO SCH (09:07)
[2018-02-21] MEDS: OLANZapine 7.5 MG TABLET PO SCH (21:04)
[2018-02-21] MEDS: LORazepam 2 MG TABLET PO PRN (21:04)
[2018-02-22] MEDS: DULoxetine HCL 30 MG CAPSULE PO SCH (09:00)
[2018-02-22] MEDS: LISINOPRIL 5 MG TABLET PO SCH (09:00)
[2018-02-22 16:22] VITALS: BP 137/83
[2018-02-22] MEDS: OLANZapine 7.5 MG TABLET PO SCH (20:39)
[2018-02-23 08:00] VITALS: BP 117/81
[2018-02-23] MEDS: LISINOPRIL 5 MG TABLET PO SCH (08:57)
[2018-02-23] MEDS: DULoxetine HCL 30 MG CAPSULE PO SCH (08:57)
[2018-02-23] MEDS: LORazepam 2 MG TABLET PO PRN (17:50)
[2018-02-23 18:00] VITALS: BP 120/78
[2018-02-23] MEDS: IBUPROFEN 400 MG TABLET PO PRN (18:00)
[2018-02-24] MEDS: LISINOPRIL 5 MG TABLET PO SCH (08:58)
[2018-02-24] MEDS: ARIPiprazole 5 MG TABLET PO SCH (08:58)
[2018-02-24] MEDS: IBUPROFEN 400 MG TABLET PO PRN (12:06)
[2018-02-24 16:41] VITALS: BP 139/64
[2018-02-24] MEDS ORDERED: ARIPiprazole 5 MG TABLET PO ONE (18:30)
[2018-02-24] MEDS: ZOLPIDEM TARTRATE 10 MG TABLET PO PRN (22:03)
[2018-02-25 09:40] VITALS: BP 138/80
[2018-02-25] MEDS: LISINOPRIL 5 MG TABLET PO SCH (09:43)
[2018-02-25] MEDS: ARIPiprazole 5 MG TABLET PO SCH (09:43)
[2018-02-26 09:00] VITALS: BP 132/86
[2018-02-26] MEDS ORDERED: ARIPiprazole 10 MG TABLET PO SCH (09:00)
[2018-02-26] MEDS: LISINOPRIL 5 MG TABLET PO SCH (09:06)
[2018-02-26 16:18] VITALS: BP 134/85
[2018-02-26] MEDS: ZOLPIDEM TARTRATE 10 MG TABLET PO PRN (22:10)
[2018-02-27 08:43] VITALS: BP 123/73
[2018-02-27] MEDS: LISINOPRIL 5 MG TABLET PO SCH (09:06)
[2018-02-27] MEDS: ARIPiprazole 10 MG TABLET PO SCH (09:06)
[2018-02-27] MEDS ORDERED: TraMADol HCL 50 MG TABLET PO PRN (11:15)
[2018-02-27] MEDS ORDERED: BENZOCAINE 10% 7 GM GEL TP PRN (11:15)
[2018-02-27 16:32] VITALS: BP 139/84
[2018-02-28 07:19] VITALS: BP 127/80
[2018-02-28 08:55] VITALS: BP 112/76
[2018-02-28] MEDS: LISINOPRIL 5 MG TABLET PO SCH (08:56)
[2018-02-28] MEDS: ARIPiprazole 10 MG TABLET PO SCH (08:56)
[2018-02-28 16:03] VITALS: BP 116/86
[2018-03-01 06:13] VITALS: BP 120/86
[2018-03-01 08:45] VITALS: BP 138/62
[2018-03-01] MEDS: LISINOPRIL 5 MG TABLET PO SCH (08:49)
[2018-03-01] MEDS: ARIPiprazole 10 MG TABLET PO SCH (08:50)
[2018-03-01 16:11] VITALS: BP 122/82
[2018-03-01] MEDS: ZOLPIDEM TARTRATE 10 MG TABLET PO PRN (20:40)
[2018-03-02 06:53] VITALS: BP 120/86
[2018-03-02 08:15] VITALS: BP 140/86
[2018-03-02] MEDS ORDERED: ARIPiprazole 10 MG TABLET PO SCH (09:00)
[2018-03-02] MEDS: LISINOPRIL 5 MG TABLET PO SCH (09:09)
[2018-03-02 16:21] VITALS: BP 108/74
[2018-03-03 06:11] VITALS: BP 110/68
[2018-03-03 08:21] VITALS: BP 105/71
[2018-03-03] MEDS: ARIPiprazole 10 MG TABLET PO SCH (08:32)
[2018-03-03] MEDS: LISINOPRIL 5 MG TABLET PO SCH (08:34)
[2018-03-03 16:08] VITALS: BP 110/73
[2018-03-04 06:09] VITALS: BP 126/82
[2018-03-04] MEDS: ARIPiprazole 10 MG TABLET PO SCH (08:49)
[2018-03-04] MEDS: LISINOPRIL 5 MG TABLET PO SCH (08:50)
[2018-03-04 16:08] VITALS: BP 122/63
[2018-03-05 08:20] VITALS: BP 130/84
[2018-03-05] MEDS: LISINOPRIL 5 MG TABLET PO SCH (08:29)
[2018-03-05] MEDS: ARIPiprazole 10 MG TABLET PO SCH (08:29)
[2018-03-05 16:08] VITALS: BP 115/76
[2018-03-06 08:55] VITALS: BP 117/78
[2018-03-06] MEDS: ARIPiprazole 10 MG TABLET PO SCH (08:56)
[2018-03-06] MEDS: LISINOPRIL 5 MG TABLET PO SCH (08:56)
[2018-03-06 22:22] VITALS: BP 118/84
[2018-03-06] MEDS: ZOLPIDEM TARTRATE 10 MG TABLET PO PRN (22:22)
[2018-03-07] MEDS: LISINOPRIL 5 MG TABLET PO SCH (08:15)
[2018-03-07] MEDS: ARIPiprazole 10 MG TABLET PO SCH (08:15)
[2018-03-07 08:17] VITALS: BP 119/74
[2018-03-07] MEDS ORDERED: LOPERAMIDE HCL 2 MG CAPSULE PO PRN (14:15)
[2018-03-07] MEDS ORDERED: HydrOXYzine PAMOATE 50 MG CAPSULE PO PRN (14:15)
[2018-03-07] MEDS ORDERED: GuaiFENesin/D-METHORPHAN [SUGAR-FREE] 200-20MG/10 ML SYRUP UDCUP PO PRN (14:15)
[2018-03-07 16:04] VITALS: BP 127/76
[2018-03-07] MEDS: THIAMINE HCL 100 MG TABLET PO SCH (16:38)
[2018-03-08] MEDS: THIAMINE HCL 100 MG TABLET PO SCH ×2 (09:00→16:38)
[2018-03-08] MEDS: FOLIC ACID 1 MG TABLET PO SCH (09:00)
[2018-03-08] MEDS: MULTIVITAMINS WITH MINERALS, THERAPEUTIC TABLET PO SCH (09:00)
[2018-03-08] MEDS: LISINOPRIL 5 MG TABLET PO SCH (09:00)
[2018-03-08] MEDS: ARIPiprazole 10 MG TABLET PO SCH (09:00)
[2018-03-08] MEDS: NALTREXONE HCL 50 MG TABLET PO SCH (09:00)
[2018-03-08 16:07] VITALS: BP 110/72
[2018-03-08 20:10] VITALS: BP 113/80
[2018-03-08] MEDS: IBUPROFEN 400 MG TABLET PO PRN (20:19)
[2018-03-08] MEDS: ZOLPIDEM TARTRATE 10 MG TABLET PO PRN (20:52)
[2018-03-09 06:56] VITALS: BP 140/90
[2018-03-09 08:23] VITALS: BP 115/75
[2018-03-09] MEDS: FOLIC ACID 1 MG TABLET PO SCH (08:43)
[2018-03-09] MEDS: ARIPiprazole 10 MG TABLET PO SCH (08:43)
[2018-03-09] MEDS: NALTREXONE HCL 50 MG TABLET PO SCH (08:43)
[2018-03-09] MEDS: MULTIVITAMINS WITH MINERALS, THERAPEUTIC TABLET PO SCH (08:44)
[2018-03-09] MEDS: LISINOPRIL 5 MG TABLET PO SCH (08:44)
[2018-03-09] MEDS: THIAMINE HCL 100 MG TABLET PO SCH ×2 (08:44→16:34)
[2018-03-09 16:21] VITALS: BP 113/68
[2018-03-09] MEDS: ZOLPIDEM TARTRATE 10 MG TABLET PO PRN (22:40)
[2018-03-10] MEDS: LISINOPRIL 5 MG TABLET PO SCH (09:00)
[2018-03-10] MEDS: NALTREXONE HCL 50 MG TABLET PO SCH (09:00)
[2018-03-10] MEDS: THIAMINE HCL 100 MG TABLET PO SCH ×2 (09:00→16:32)
[2018-03-10] MEDS: MULTIVITAMINS WITH MINERALS, THERAPEUTIC TABLET PO SCH (09:00)
[2018-03-10] MEDS: FOLIC ACID 1 MG TABLET PO SCH (09:00)
[2018-03-10] MEDS: ARIPiprazole 10 MG TABLET PO SCH (09:00)
[2018-03-11 00:05] VITALS: BP 140/73
[2018-03-11] MEDS: ZOLPIDEM TARTRATE 10 MG TABLET PO PRN ×2 (00:08→23:16)
[2018-03-11] MEDS: LISINOPRIL 5 MG TABLET PO SCH (08:46)
[2018-03-11] MEDS: FOLIC ACID 1 MG TABLET PO SCH (08:46)
[2018-03-11] MEDS: MULTIVITAMINS WITH MINERALS, THERAPEUTIC TABLET PO SCH (08:46)
[2018-03-11] MEDS: THIAMINE HCL 100 MG TABLET PO SCH ×2 (08:46→17:00)
[2018-03-11] MEDS: NALTREXONE HCL 50 MG TABLET PO SCH (08:46)
[2018-03-11] MEDS: ARIPiprazole 10 MG TABLET PO SCH (08:46)
[2018-03-12] MEDS: FOLIC ACID 1 MG TABLET PO SCH (09:00)
[2018-03-12] MEDS: NALTREXONE HCL 50 MG TABLET PO SCH (09:00)
[2018-03-12] MEDS: LISINOPRIL 5 MG TABLET PO SCH (09:00)
[2018-03-12] MEDS: THIAMINE HCL 100 MG TABLET PO SCH ×2 (09:00→16:53)
[2018-03-12] MEDS: MULTIVITAMINS WITH MINERALS, THERAPEUTIC TABLET PO SCH (09:00)
[2018-03-12] MEDS: ARIPiprazole 10 MG TABLET PO SCH (09:00)
[2018-03-13] MEDS ORDERED: HALOPERIDOL LACTATE 5 MG/ML VIAL IM ONE (01:30)
[2018-03-13] MEDS ORDERED: LORazepam 2 MG/ML VIAL IM ONE (01:30)
[2018-03-13] MEDS ORDERED: DiphenhydrAMINE HCL 50 MG/ML VIAL IM ONE (01:30)
[2018-03-13] MEDS: THIAMINE HCL 100 MG TABLET PO SCH ×2 (09:00→17:15)
[2018-03-13] MEDS: ARIPiprazole 10 MG TABLET PO SCH (09:00)
[2018-03-13] MEDS: FOLIC ACID 1 MG TABLET PO SCH (09:00)
[2018-03-13] MEDS: NALTREXONE HCL 50 MG TABLET PO SCH (09:00)
[2018-03-13] MEDS: MULTIVITAMINS WITH MINERALS, THERAPEUTIC TABLET PO SCH (09:00)
[2018-03-13] MEDS: LISINOPRIL 5 MG TABLET PO SCH (09:00)
[2018-03-14] MEDS: FOLIC ACID 1 MG TABLET PO SCH (09:00)
[2018-03-14] MEDS: ARIPiprazole 10 MG TABLET PO SCH (09:00)
[2018-03-14] MEDS: MULTIVITAMINS WITH MINERALS, THERAPEUTIC TABLET PO SCH (09:00)
[2018-03-14] MEDS: LISINOPRIL 5 MG TABLET PO SCH (09:00)
[2018-03-14] MEDS: NALTREXONE HCL 50 MG TABLET PO SCH (09:00)
[2018-03-14] MEDS: THIAMINE HCL 100 MG TABLET PO SCH ×2 (09:00→17:07)
== END 2018-03-14 17:40 | disposition home or self-care (01) | DRG 885 ==
LOC: EMS 15:43 → B2X 02-21 00:02
PROVIDERS: ADMIT Psychiatry & Neurology Psychiatry; ATTEND Psychiatry & Neurology Psychiatry
DX: F25.0 Schizoaffective disorder, bipolar type (principal); R45.851 Suicidal ideations; G89.29 Other chronic pain; I10 Essential (primary) hypertension; D64.9 Anemia, unspecified; R45.84 Anhedonia; F15.29 Other stimulant dependence with unspecified stimulant-induced disorder; M54.9 Dorsalgia, unspecified; F17.200 Nicotine dependence, unspecified, uncomplicated; K21.9 Gastro-esophageal reflux disease without esophagitis; Z59.0 Homelessness; Z79.899 Other long term (current) drug therapy; Z71.6 Tobacco abuse counseling; Z91.14 Patient's other noncompliance with medication regimen; Z91.19 Patient's noncompliance with other medical treatment and regimen; Z91.5 Personal history of self-harm
CPT/HCPCS: 99285; 99406; G0480; J1200; J1630; J2060

== ENCOUNTER 2018-09-21 00:44 | Inpatient (IN) | payer MEDICARE, MEDICAID ==
[~2018-09-21] VITALS: Ht 177.8 cm; Wt 69.9 kg
[~2018-09-21 00:44] MED LIST changes: -DSS100 PO; -DULO30CA2 PO; -GABA-531 PO; +LISI-660 PO; -LISI-661 PO; -NALT50TA PO; -NALT50TA6 PO; -OLAN5TAB30 PO; -OLAN7.5T2 PO; -OMEG-135 PO; -OMEP20 PO
[2018-09-21 01:15] LABS: BASOPHILS % (AUTO) 0.6 % (0.0-2.0); EOSINOPHILS % (AUTO) 2.2 % (1.0-6.0); HEMOGLOBIN 12.9 g/dL (13.5-17.5); LYMPHOCYTES # (AUTO) 2.1 K/uL (1.0-4.8); LYMPHOCYTES % (AUTO) 27.6 % (22.0-44.0); MEAN CORPUSCULAR HEMOGLOBIN 30.8 pg (26.0-34.0); MEAN CORPUSCULAR HGB CONC 34.8 G/dL (31.0-37.0); MEAN CORPUSCULAR VOLUME 89 fL (80-100); MONOCYTES # (AUTO) 0.9 K/uL (0.1-1.0); MONOCYTES % (AUTO) 12.2 % (2.0-9.0); NEUTROPHILS # (AUTO) 4.4 K/uL (1.8-7.7); NEUTROPHILS % (AUTO) 57.4 % (40.0-70.0); PLATELET COUNT (AUTO) 242 K/uL (150-450); RED BLOOD CELL COUNT(AUTO) 4.18 MIL/uL (4.50-5.90); RED CELL DISTRIBUTION WIDTH 13.4 % (11.5-14.5)
[2018-09-21 01:32] LABS: ANION GAP 9 mmol/L (8-16); CALCIUM, TOTAL 9.6 mg/dL (8.8-10.5); CARBON DIOXIDE 29 mmol/L (22-29); CHLORIDE 102 mmol/L (98-107); CREATININE 1.36 mg/dL (0.60-1.30); GLOMERULAR FILTR. RATE CALC > 60 mL/min (>60); GLUCOSE,RANDOM 68 mg/dL (70-110); POTASSIUM 4.2 mmol/L (3.5-5.1); SODIUM SERUM 140 mmol/L (136-145); UREA NITROGEN, BLOOD 33 mg/dL (7-18)
[2018-09-21 01:37] LABS: ALANINE AMINOTRANSFERASE 16 U/L (12-78); ALBUMIN 3.3 g/dL (3.4-5.0); ALKALINE PHOSPHATASE 68 U/L (46-116); ASPARTATE AMINOTRANSFERASE 10 U/L (15-37); TOTAL PROTEIN, SERUM 7.2 g/dL (6.4-8.2)
[2018-09-21 02:03] LABS: BILIRUBIN,TOTAL 0.1 mg/dL (0.1-1.0)
[2018-09-21] MEDS ORDERED: ZOLPIDEM TARTRATE 10 MG TABLET PO PRN (02:45)
[2018-09-21] MEDS ORDERED: HALOPERIDOL 5 MG TABLET PO PRN (02:45)
[2018-09-21] MEDS ORDERED: LORazepam 2 MG TABLET PO PRN (02:45)
[2018-09-21 04:40] LABS: CHOL/HDL RATIO 2.9 (4.2-7.3); CHOLESTEROL 109 mg/dL (131-200); FREE T4 (FREE THYROXINE) 1.16 ng/dL (0.76-1.46); HDL CHOLESTEROL 37 mg/dL (40-60); LDL CHOL (CALC.) 54 mg/dL (0-130); THYROID STIMULATING HORMONE 2.07 uIU/mL (0.36-3.74); TRIGLYCERIDES 88 mg/dL (15-150)
[2018-09-21 12:07] VITALS: BP 129/67
[2018-09-21] MEDS ORDERED: GuaiFENesin/D-METHORPHAN [SUGAR-FREE] 200-20MG/10 ML SYRUP UDCUP PO PRN (12:15)
[2018-09-21] MEDS ORDERED: LOPERAMIDE HCL 2 MG CAPSULE PO PRN (12:15)
[2018-09-21] MEDS ORDERED: MAG HYDROX/AL HYDROX/SIMETH ES 30 ML SUSPENSION UDCUP PO PRN (12:15)
[2018-09-21] MEDS ORDERED: PROMETHAZINE HCL 25 MG TABLET PO PRN (12:15)
[2018-09-21] MEDS ORDERED: TUBERCULIN, PURIFIED PROTEIN DERIVATIVE 5 TU/0.1 ML SYG ID ONE (12:15)
[2018-09-21] MEDS ORDERED: ACETAMINOPHEN 325 MG TABLET PO PRN (12:15)
[2018-09-21] MEDS ORDERED: HydrOXYzine PAMOATE 50 MG CAPSULE PO PRN (12:15)
[2018-09-21] MEDS ORDERED: OLANZapine 5 MG RAPDIS TABLET PO PRN (12:15)
[2018-09-21] MEDS ORDERED: MAGNESIUM HYDROXIDE SUSPENSION 30 ML UDCUP PO PRN (12:15)
[2018-09-21] MEDS: GABAPENTIN 300 MG CAPSULE PO SCH ×2 (13:00→17:00)
[2018-09-21 16:10] VITALS: BP 118/80
[2018-09-21 16:41] LABS: HEMOGLOBIN A1C 5.6 % (4.5-6.2)
[2018-09-21] MEDS: THIAMINE HCL 100 MG TABLET PO SCH (17:00)
[2018-09-21] MEDS ORDERED: OLANZapine 5 MG RAPDIS TABLET PO SCH (21:00)
[2018-09-22] MEDS ORDERED: BISACODYL 5 MG EC TABLET PO PRN
[2018-09-22 02:20] VITALS: BP 125/85
[2018-09-22 06:00] VITALS: BP 125/85
[2018-09-22 06:20] VITALS: BP 128/87
[2018-09-22] MEDS ORDERED: DULoxetine HCL 20 MG CAPSULE PO SCH (09:00)
[2018-09-22] MEDS: GABAPENTIN 300 MG CAPSULE PO SCH ×2 (09:56→12:39)
[2018-09-22] MEDS: PANTOPRAZOLE SODIUM 40 MG DR TABLET PO SCH (09:56)
[2018-09-22] MEDS: MULTIVITAMINS WITH MINERALS, THERAPEUTIC TABLET PO SCH (09:56)
[2018-09-22] MEDS: THIAMINE HCL 100 MG TABLET PO SCH ×2 (09:56→16:43)
[2018-09-22] MEDS: NALTREXONE HCL 50 MG TABLET PO SCH (09:56)
[2018-09-22] MEDS: FOLIC ACID 1 MG TABLET PO SCH (09:56)
[2018-09-22] MEDS ORDERED: PALIPERIDONE PALMITATE 234 MG/1.5 ML SYRINGE IM ONE (16:00)
[2018-09-22] MEDS ORDERED: PALIPERIDONE 3 MG ER TABLET PO PRN (16:00)
[2018-09-22] MEDS ORDERED: HydrOXYzine PAMOATE 50 MG CAPSULE PO PRN (16:00)
[2018-09-22] MEDS ORDERED: LOPERAMIDE HCL 2 MG CAPSULE PO PRN (16:00)
[2018-09-22] MEDS ORDERED: GuaiFENesin/D-METHORPHAN [SUGAR-FREE] 200-20MG/10 ML SYRUP UDCUP PO PRN (16:00)
[2018-09-22] MEDS ORDERED: DIAZEPAM 10 MG TABLET PO PRN (16:00)
[2018-09-23] MEDS ORDERED: DIAZEPAM 10 MG TABLET PO PRN (07:00)
[2018-09-23] MEDS ORDERED: LOPERAMIDE HCL 2 MG CAPSULE PO PRN (07:00)
[2018-09-23] MEDS: PANTOPRAZOLE SODIUM 40 MG DR TABLET PO SCH (08:37)
[2018-09-23] MEDS: NALTREXONE HCL 50 MG TABLET PO SCH (08:37)
[2018-09-23] MEDS: THIAMINE HCL 100 MG TABLET PO SCH ×2 (08:37→16:00)
[2018-09-23] MEDS: MULTIVITAMINS WITH MINERALS, THERAPEUTIC TABLET PO SCH (08:37)
[2018-09-23] MEDS: FOLIC ACID 1 MG TABLET PO SCH (08:37)
[2018-09-23] MEDS: DIAZEPAM 10 MG TABLET PO SCH ×4 (08:46→20:25)
[2018-09-24 03:45] VITALS: BP 118/82
[2018-09-24 03:46] VITALS: BP 118/82
[2018-09-24] MEDS: MULTIVITAMINS WITH MINERALS, THERAPEUTIC TABLET PO SCH (08:33)
[2018-09-24] MEDS: DIAZEPAM 10 MG TABLET PO SCH ×4 (08:33→20:58)
[2018-09-24] MEDS: FOLIC ACID 1 MG TABLET PO SCH (08:33)
[2018-09-24] MEDS: NALTREXONE HCL 50 MG TABLET PO SCH (08:33)
[2018-09-24] MEDS: PANTOPRAZOLE SODIUM 40 MG DR TABLET PO SCH (08:33)
[2018-09-24] MEDS: THIAMINE HCL 100 MG TABLET PO SCH ×2 (08:33→16:21)
[2018-09-24 08:41] VITALS: BP 109/70
[2018-09-24 16:00] VITALS: BP 139/89
[2018-09-24 16:06] VITALS: BP 139/89
[2018-09-25 00:18] VITALS: BP 128/85
[2018-09-25 00:19] VITALS: BP 128/85
[2018-09-25] MEDS ORDERED: DIAZEPAM 5 MG TABLET PO PRN (07:00)
[2018-09-25 08:16] VITALS: BP 127/86
[2018-09-25] MEDS: FOLIC ACID 1 MG TABLET PO SCH (09:00)
[2018-09-25] MEDS: DIAZEPAM 5 MG TABLET PO SCH ×4 (09:00→20:39)
[2018-09-25] MEDS: MULTIVITAMINS WITH MINERALS, THERAPEUTIC TABLET PO SCH (09:00)
[2018-09-25] MEDS: PANTOPRAZOLE SODIUM 40 MG DR TABLET PO SCH (09:00)
[2018-09-25] MEDS: THIAMINE HCL 100 MG TABLET PO SCH ×2 (09:00→17:00)
[2018-09-25] MEDS: NALTREXONE HCL 50 MG TABLET PO SCH (09:00)
[2018-09-26 02:09] VITALS: BP 122/80
[2018-09-26 02:12] VITALS: BP 122/80
[2018-09-26] MEDS ORDERED: DIAZEPAM 5 MG TABLET PO PRN (07:00)
[2018-09-26] MEDS: THIAMINE HCL 100 MG TABLET PO SCH ×2 (08:15→16:33)
[2018-09-26] MEDS: PANTOPRAZOLE SODIUM 40 MG DR TABLET PO SCH (08:15)
[2018-09-26] MEDS: FOLIC ACID 1 MG TABLET PO SCH (08:15)
[2018-09-26] MEDS: NALTREXONE HCL 50 MG TABLET PO SCH (08:15)
[2018-09-26] MEDS: MULTIVITAMINS WITH MINERALS, THERAPEUTIC TABLET PO SCH (08:15)
[2018-09-26] MEDS ORDERED: PALIPERIDONE PALMITATE 156 MG/ML SYRINGE IM ONE (09:00)
[2018-09-26 16:00] VITALS: BP 104/64
[2018-09-27] MEDS: THIAMINE HCL 100 MG TABLET PO SCH ×2 (08:27→16:27)
[2018-09-27] MEDS: FOLIC ACID 1 MG TABLET PO SCH (08:27)
[2018-09-27] MEDS: MULTIVITAMINS WITH MINERALS, THERAPEUTIC TABLET PO SCH (08:27)
[2018-09-27] MEDS: PANTOPRAZOLE SODIUM 40 MG DR TABLET PO SCH (08:27)
[2018-09-27] MEDS: NALTREXONE HCL 50 MG TABLET PO SCH (08:27)
[2018-09-28] MEDS: MULTIVITAMINS WITH MINERALS, THERAPEUTIC TABLET PO SCH (08:12)
[2018-09-28] MEDS: PANTOPRAZOLE SODIUM 40 MG DR TABLET PO SCH (08:12)
[2018-09-28] MEDS: NALTREXONE HCL 50 MG TABLET PO SCH (08:13)
[2018-09-28] MEDS: FOLIC ACID 1 MG TABLET PO SCH (08:13)
[2018-09-28] MEDS: THIAMINE HCL 100 MG TABLET PO SCH ×2 (08:13→16:56)
[2018-09-29 07:05] VITALS: BP 138/98
[2018-09-29 08:11] VITALS: BP 120/84
[2018-09-29] MEDS: THIAMINE HCL 100 MG TABLET PO SCH ×2 (08:59→16:56)
[2018-09-29] MEDS: FOLIC ACID 1 MG TABLET PO SCH (08:59)
[2018-09-29] MEDS: NALTREXONE HCL 50 MG TABLET PO SCH (08:59)
[2018-09-29] MEDS: MULTIVITAMINS WITH MINERALS, THERAPEUTIC TABLET PO SCH (08:59)
[2018-09-29] MEDS: PANTOPRAZOLE SODIUM 40 MG DR TABLET PO SCH (08:59)
[2018-09-29] MEDS ORDERED: PALI117D IM (11:21)
[2018-09-29] MEDS ORDERED: NALT50TA PO (11:21)
[2018-09-29 16:16] VITALS: BP 110/73
[2018-09-30] MEDS: THIAMINE HCL 100 MG TABLET PO SCH (08:02)
[2018-09-30] MEDS: PANTOPRAZOLE SODIUM 40 MG DR TABLET PO SCH (08:02)
[2018-09-30] MEDS: FOLIC ACID 1 MG TABLET PO SCH (08:02)
[2018-09-30] MEDS: NALTREXONE HCL 50 MG TABLET PO SCH (08:02)
[2018-09-30] MEDS: MULTIVITAMINS WITH MINERALS, THERAPEUTIC TABLET PO SCH (08:03)
== END 2018-09-30 13:30 | disposition home or self-care (01) | DRG 885 ==
LOC: EMS 00:48 → B3A 05:00
PROVIDERS: ADMIT Psychiatry & Neurology Psychiatry; ATTEND Psychiatry & Neurology Psychiatry
DX: F25.0 Schizoaffective disorder, bipolar type (principal); E46 Unspecified protein-calorie malnutrition; E78.5 Hyperlipidemia, unspecified; Z68.22 Body mass index [BMI] 22.0-22.9, adult; F10.229 Alcohol dependence with intoxication, unspecified; F17.210 Nicotine dependence, cigarettes, uncomplicated; F15.90 Other stimulant use, unspecified, uncomplicated; F39 Unspecified mood [affective] disorder; K21.9 Gastro-esophageal reflux disease without esophagitis; I12.9 Hypertensive chronic kidney disease with stage 1 through stage 4 chronic kidney disease, or unspecified chronic kidney disease; G89.29 Other chronic pain; K59.00 Constipation, unspecified; D64.9 Anemia, unspecified; N18.9 Chronic kidney disease, unspecified; G43.909 Migraine, unspecified, not intractable, without status migrainosus; F32.9 Major depressive disorder, single episode, unspecified; M54.9 Dorsalgia, unspecified; R19.7 Diarrhea, unspecified; Z59.0 Homelessness; Z91.14 Patient's other noncompliance with medication regimen; Z91.19 Patient's noncompliance with other medical treatment and regimen
CPT/HCPCS: 83036; 84439; 84443; G0480

== ENCOUNTER 2019-01-16 17:36 | Emergency (ER) | payer MEDICARE, OTHER ==
[~2019-01-16] VITALS: Ht 182.9 cm; Wt 84.1 kg
[~2019-01-16 17:36] MED LIST changes: -LISI-660 PO; +NALT50TA PO; +PALI117D IM
[2019-01-16] MEDS ORDERED: KETOROLAC TROMETHAMINE 30 MG/ML VIAL IM ONE (20:15)
[2019-01-16 20:50] LABS: AMPHET/METH SCREEN,URINE POSITIVE (NEGATIVE); BARBITURATE SCREEN, URINE NEGATIVE (NEGATIVE); BENZODIAZEPINES SCREEN,URINE NEGATIVE (NEGATIVE); CANNABINOID SCREEN,URINE NEGATIVE (NEGATIVE); COCAINE SCREEN,URINE NEGATIVE (NEGATIVE); METHADONE SCREEN, URINE NEGATIVE (NEGATIVE); OPIATE SCREEN,URINE NEGATIVE (NEGATIVE); PHENCYCLIDINE SCREEN,URINE NEGATIVE (NEGATIVE)
[2019-01-16 21:40] VITALS: BP 148/103
== END 2019-01-17 | disposition home or self-care (01) ==
LOC: EMS 17:36
DX: F20.9 Schizophrenia, unspecified (principal); F15.10 Other stimulant abuse, uncomplicated; I10 Essential (primary) hypertension; F32.9 Major depressive disorder, single episode, unspecified; F17.210 Nicotine dependence, cigarettes, uncomplicated
CPT/HCPCS: 80307; 96372; 99283; J1885

== ENCOUNTER 2022-07-06 03:18 | Emergency (ER) | payer MEDICARE, MEDICAID ==
[~2022-07-06] VITALS: Ht 180.3 cm; Wt 86.3 kg
[2022-07-06 04:15] LABS: COVID AG,FIA SOURCE NASAL SWAB
[2022-07-06] MEDS ORDERED: ALBUTEROL SULFATE 2.5 MG/0.5 ML NEB SOLUTION NEB ONE (04:15)
[2022-07-06] MEDS ORDERED: IPRATROPIUM BROMIDE 0.5 MG/2.5 ML NEB SOLUTION NEB ONE (04:15)
[2022-07-06 04:48] LABS: INFLUENZA TYPE A NEGATIVE FOR TYPE A (NEGATIVE); INFLUENZA TYPE B NEGATIVE FOR TYPE B (NEGATIVE)
[2022-07-06] MEDS ORDERED: ALBU8HFA IH (05:56)
[2022-07-06 06:38] VITALS: BP 141/100
== END 2022-07-06 06:45 | disposition home or self-care (01) ==
LOC: EMS 03:20
DX: R06.02 Shortness of breath (principal); F32.A Depression, unspecified; I10 Essential (primary) hypertension; F20.9 Schizophrenia, unspecified; F17.210 Nicotine dependence, cigarettes, uncomplicated; Z98.890 Other specified postprocedural states; Z20.822 Contact with and (suspected) exposure to COVID-19
CPT/HCPCS: 71045; 87804; 94640; 99284; J7613

== ENCOUNTER 2022-07-14 02:00 | Emergency (ER) | payer MEDICARE, MEDICAID ==
[~2022-07-14] VITALS: Ht 180.3 cm; Wt 86.3 kg
[~2022-07-14 02:00] MED LIST changes: +ALBU8HFA IH
[2022-07-14 07:30] VITALS: BP 146/119
[2022-07-14] MEDS ORDERED: ALBUTEROL SULFATE HFA 90 MCG/PUFF 8 GM INHALER IH ONE (07:45)
[2022-07-14] MEDS ORDERED: FLUTICASONE PROPIONATE HFA 110 MCG/PUFF 12 GM INHALER IH ONE (07:45)
[2022-07-14] MEDS ORDERED: BENZ-70 PO (15:09)
== END 2022-07-14 08:27 | disposition home or self-care (01) ==
LOC: EMS 02:01
DX: J45.909 Unspecified asthma, uncomplicated (principal); F32.A Depression, unspecified; F20.9 Schizophrenia, unspecified; I10 Essential (primary) hypertension
CPT/HCPCS: 94640; 99283; J3535

== ENCOUNTER 2022-07-14 11:54 | Emergency (ER) | payer MEDICARE, MEDICAID ==
[~2022-07-14] VITALS: Ht 180.3 cm; Wt 88.6 kg
[2022-07-14 15:00] VITALS: BP 145/108
[2022-07-14] MEDS ORDERED: BENZ-70 PO (15:09)
== END 2022-07-14 15:30 | disposition home or self-care (01) ==
LOC: EMS 12:00
DX: R06.02 Shortness of breath (principal); F20.9 Schizophrenia, unspecified; F17.210 Nicotine dependence, cigarettes, uncomplicated; F32.A Depression, unspecified; I10 Essential (primary) hypertension; F10.90 Alcohol use, unspecified, uncomplicated; Z98.890 Other specified postprocedural states
CPT/HCPCS: 99283

== ENCOUNTER 2022-07-14 20:01 | Emergency (ER) | payer MEDICARE, MEDICAID ==
[~2022-07-14] VITALS: Ht 185.4 cm; Wt 98.0 kg
[~2022-07-14 20:01] MED LIST changes: +BENZ-70 PO
[2022-07-14 20:11] VITALS: BP 186/96
== END 2022-07-14 20:35 | disposition home or self-care (01) ==
LOC: EMS 20:04
DX: R06.02 Shortness of breath (principal); F32.A Depression, unspecified; I10 Essential (primary) hypertension; F20.9 Schizophrenia, unspecified; F17.210 Nicotine dependence, cigarettes, uncomplicated; F10.90 Alcohol use, unspecified, uncomplicated; Z98.890 Other specified postprocedural states
CPT/HCPCS: 99283